=== PATIENT | female | born 1990 | race Caucasian/White ===

== ENCOUNTER 2021-07-29 19:07 | Emergency (ER) | payer OTHER, SELFPAY ==
[2021-07-29 19:26] VITALS: BP 126/69; PULSE 81; RESP 16; TEMP 36.5; O2SAT 100; BMI 23.5
--- NOTE | 2021-07-29 20:14 | PC.NURSE ---
Pt arrives from home with 3 children. Pt reporting a migraine x 3 weeks, states was prescribed Amitriptyline and Naproxen but scared to take either due to side effects. Pt reports taking Tylenol with no relief. Pt denies having a Neurologist. 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 Pt awaiting primary MD william.
--- NOTE | 2021-07-29 20:18 | PC.NURSE ---
PA at bedside for primary eval.
--- NOTE | 2021-07-29 20:31 | ED_ITS ---
HPI - Headache General Chief Complaint: Headache Stated Complaint: Migraine Time Seen by Provider: 07/29/21 20:17 Source: patient Mode of arrival: ambulatory Limitations: no limitations History of Present Illness HPI Narrative: 30 y/o female with a gradual onset headache that started 3 weeks ago and has been constant for the last 3 weeks. Patient has a migraine history and states this headache is like her regular migraines, is just lasting longer. Patient has pain in her bilateral scientologist and behind both her eyes. She is mildly nauseous, no photophobia. Is taking Tylenol but it did not help. PCP prescribed naproxen and a Triptan, but patient was no risk for side effects so did not take. Patient has no neck pain, no leg weakness, no gait disturbance. No fevers. Patient is in the room with her 3 children for active and running around the room, blowing up gloves as balloons. MD elicited complaint: migraine Pertinent past history: migraines Onset (ago): week(s) (3) Onset description: gradually Location: temporal Severity: moderate Quality & Timing: throbbing Exacerbating factors: none Relieving factors: rest Associated symptoms: nausea Related Data Previous Rx's Medication Instructions Recorded dexamethasone 6 mg tablet 6 mg PO DAILY 3 Days #3 tab 07/29/21 ketorolac 10 mg tablet 10 mg PO Q6H 5 Days #20 tab 07/29/21 Allergies Allergy/AdvReac Type Severity Reaction Status Date / Time No Known Allergies Allergy Verified 07/29/21 19:26 [No Known Allergies*] Review of Systems Constitutional: Constitutional: Denies body ache(s), Denies chills, Denies fatigue, Denies fever(s), Reports headache(s), Denies malaise and Denies weakness Eyes: Eyes: Denies diplopia ENT: Denies vertigo, Denies dizziness, Denies otalgia, Reports headache(s), Denies mouth pain, Denies post nasal drip, Denies sinus pain, Denies sinus pressure, Denies sore throat and Denies throat swelling Cardiovascular: Cardiovascular: Denies chest pain, Denies syncope, Denies leg edema, Denies lightheadedness, Denies Loss of Consciousness, Denies palpitations and Denies dyspnea Respiratory: Respiratory: Denies chest congestion, Denies cough and Denies dyspnea Gastrointestinal: Gastrointestinal: Denies abdominal pain, Denies hematochezia, Denies constipation, Denies diarrhea, Reports nausea and Denies vomiting Musculoskeletal: Musculoskeletal: Reports no additional musculoskeletal complaints Neurologic: Denies confusion, Denies vertigo, Denies dizziness, Denies syncope, Reports headache(s) and Denies weakness Psychiatric: Psychiatric: Denies anxiety, Denies confusion and Denies dep ression Endocrine: Endocrine: Denies fatigue and Denies palpitations Allergic/Immunologic: Allergic/Immunologic: Denies throat swelling [facility] Social History Social History Advance Directives: No Advance Directives Information Provided: No Physical Exam Vital Signs: Vital Signs: Last Vital Signs Temp 97.7 F 07/29/21 19:26 Pulse 81 07/29/21 19:26 Resp 16 07/29/21 19:26 BP 126/69 07/29/21 19:26 Pulse Ox 100 07/29/21 19:26 Body Mass Index 23.5 Appearance: Alert. Oriented X3. No acute distress. Head: Normal external exam. Normocephalic. Atraumatic. ?No Hernandez signs noted. No raccoon eyes noted Eyes: PERRLA. EOMI. Conjunctiva and sclera normal. Eyelids normal. ENT: EAC normal. TM's Normal. Pharynx normal. Uvula midline. Moist mucous membranes. ??No trismus noted. ?No drooling noted. ?No muffled voice noted. Neck: Normal inspection. Neck supple. FROM. No adenopathy. Thyroid Normal. No meningeal signs. No neck mass noted. CVS: Normal heart rate and rhythm. Heart sound normal. Pulses normal throughout. ?No murmurs/rales/gallops. Respiratory: No respiratory distress. Painless inspiration. Breath sounds normal. No wheezes/rales/rhonchi noted. Chest nontender. ??No accessory muscle usage noted or decreased air movement noted. Abdomen: Soft and nontender. Bowel sounds normal in all 4 quadrants. No distention noted. ?No organomegaly noted. ?No visible injury noted. Back: ?No CVA tenderness. ?Full range of motion noted. ?No rashes/lesion/induration/fluctuance or signs of infection noted. Skin: Skin warm and dry. ?Normal skin color. ?Normal skin turgor. No rashes/lesions/lacerations noted. Extremities: No lower extremity edema. ??Extremities exhibit normal range of motion. ?Extremities nontender. Neuro: Oriented X 3. No motor deficit. No sensory deficit. ?Reflexes normal. Moving all extremities. ?No focal motor deficits. ?Cranial nerves II-XI intact bilaterally. ??Facial strength normal. ??Normal cognition. Speech normal. Gait normal. Strength 5/5 throughout. No pronator drift. No tremor noted. No fasciculations noted. No rigidity noted. Muscle tone normal throughout. No asterixis noted. Elvnmr-ex-eqkp test normal. ?Heel to lombardo test normal. Tandem gait normal. Does not sway with eyes open. Romberg test negative. Rapid alternating movement upper extremity normal. Rapid alternating movement lower extremity normal. ??Hand drop from overhead Misses face. ?NIHSS score 0. Const: General: No confusion Orientation/consciousness: No confusion Neuro: General: No confusion Course Course Course Narrative: [age] year old female with 3 weeks of gradual onset headache that is like a usual migraines but lasting longer. No neck pain, no focal neuro deficits, no fevers, no meningismus. On exam, patient has a benign neurological exam, and is anxious to get home and get her children to bed. The usual treatment of migraine with IV fluids, ketorolac, Reglan, Zofran will not work in this case. Patient does not have the luxury of sleeping in a dark room with her children running around the exam room and arguing with each other. Gave patient IM ketorolac, Reglan, dexamethasone. Prescribed ketorolac and dexamethasone for home. Gave return precautions for sudden-onset headache, blurred vision, neck pain, weakness, or any other new or concerning symptoms. Discharge Plan Discharge Clinical Impression: Migraine Qualifiers: Migraine type: without aura Status migrainosus presence: without status migrainosus Intractability: not intractable Qualified Code(s): G43.009 - Migraine without aura, not intractable, without status migrainosus Patient Disposition: Home, Self-Care Instructions: Migraine Headache (ED) Additional Instructions: These for a prescription for ketorolac and dexamethasone that I have sent to your pharmacy. You have had your doses of both of these today, but I would like you to start them tomorrow. Please take Benadryl when you get home, 25-50 mg. Please try to sleep in a dark room. Please drink at least 1.5 L of water when you get home Please return to emergency room if you had sudden severe headache, neck pain, visual changes, gait disturbance, or any other new or concerning symptoms. Please call your primary care provider for follow-up appointment. Prescriptions: New ketorolac 10 mg tablet 10 mg PO Q6H 5 Days Qty: 20 RF: 0 dexamethasone 6 mg tablet 6 mg PO DAILY 3 Days Qty: 3 RF: 0 Interventions: ED Discharge Assessment Last Done: 07/29/21 20:44 Discharge Date/Time: 07/29/21 20:45
[2021-07-29] MEDS: Metoclopramide HCl 10 MG TABLET PO (20:40)
[2021-07-29] MEDS: dexAMETHasone 6 MG TABLET PO (20:40)
[2021-07-29] MEDS: Ketorolac Tromethamine 15 MG/ML VIAL IM (20:40)
--- NOTE | 2021-07-29 20:44 | PC.NURSE ---
Pt medicated per MAR, provided with DC paperwork.
== END 2021-07-29 20:45 | disposition home or self-care (01) ==
PROVIDERS: Emergency Provider Emergency Medicine Emergency Medical Services
DX: G43.009 Migraine without aura, not intractable, without status migrainosus (principal)
CPT/HCPCS: 96372; 99283; 99284; J1885; J8540

== ENCOUNTER 2021-08-04 13:39 | Emergency (ER) | payer OTHER, SELFPAY ==
--- NOTE | ~2021-08-04 | CT_ITS ---
EXAMINATION: CT HEAD WITHOUT CONTRAST CLINICAL INFORMATION: Headache COMPARISON: None TECHNIQUE: Contiguous axial imaging was performed from the skull base to vertex without intravenous administration of contrast. This CT examination was performed using dose optimization techniques as appropriate, variously including the following: *Automated exposure control *Adjustment of mA and/or kV according to patient size (this includes techniques or standardized protocols for targeted exams where dose is matched to indication/reason for exam; i.e. extremities or head) *Use of iterative reconstruction technique DLP: 589 mGy-cm FINDINGS: There is no evidence of acute intracranial hemorrhage or territorial infarction. No abnormal mass effect or midline shift is seen. [place] to white matter differentiation is well preserved. No extra-axial fluid collections are identified. The ventricles are normal in size. There is no abnormal attenuation within the brain parenchyma. The osseous structures and soft tissues are normal. The mastoid air cells and visualized portions of the paranasal sinuses are well aerated. CT/CT head/brain wo con IMPRESSION: No acute intracranial pathology.
--- NOTE | 2021-08-04 13:48 | ED.HA ---
HPI - Headache General Chief Complaint: Headache Stated Complaint: headache - meds not working Time Seen by Provider: 08/04/21 13:47 Source: patient and old records reviewed Mode of arrival: ambulatory Limitations: no limitations History of Present Illness MD elicited complaint: headache Pertinent past history: migraines Onset (ago): week(s) (4) Onset description: gradually Location: temporal Severity: severe Quality & Timing: throbbing Exacerbating factors: light and noise Relieving factors: nothing Context: occurred at rest Associated symptoms: other (feels her ears are blocked) Treatments prior to arrival: other (tried ketorolac and dexamethasone) Related Data Previous Rx's Medication Instructions Recorded dexamethasone 6 mg tablet 6 mg PO DAILY 3 Days #3 tab 07/29/21 ketorolac 10 mg tablet 10 mg PO Q6H 5 Days #20 tab 07/29/21 gimkbwfbhx-mskkoncfbldes-cjhynxfz 1 tab PO Q6H PRN #20 tab 08/04/21 50 mg-325 mg-40 mg tablet cyclobenzaprine 10 mg tablet 10 mg PO TID PRN #14 tab 08/04/21 ondansetron 4 mg disintegrating 4 mg PO Q8H PRN #20 tab 08/04/21 tablet Allergies Allergy/AdvReac Type Severity Reaction Status Date / Time No Known Allergies Allergy Verified 07/29/21 19:26 [No Known Allergies*] Review of Systems Review of Systems: Constitutional : No Fever, No Chills, No Fatigue ENT/Mouth : No sore throat, No Rhinorrhea, pos ear pain Eyes: No Eye Pain, No Swelling, No Redness Cardiovascular : No Chest Pain, No SOB, No Dyspnea on Exertion Respiratory : No Cough, No Sputum Gastrointestinal : pos Nausea, No Vomiting, No Diarrhea, No abdominal Pain Genitourinary : No Dysuria, No Urinary Frequency, No Hematuria, Musculoskeletal : No joint pain, No Myalgias, No Joint Swelling Skin : No Skin Lesions, No rash Neuro : No Weakness, No Numbness, No Dizziness, positive Headache Psych : No Anxiety/Panic, No Depression Heme/Lymph: No Bruising, No Bleeding,No Lymphadenopathy Endocrine : No Polyuria, No Polydipsia All other systems reviewed and are negative PMFSH Past Medical History Attestation statement: The following information was validated with the patient. Medical History Migraines Persistent headaches Social History Social History (Updated 08/04/21 @ 14:01 by Vicenta Bautista DO) Patient Tobacco Use Status: Tobacco use Unknown Use of substances other than those prescribed or required for medical reasons: No Advance Directives: No Advance Directives Information Provided: No Patient : No Physical Exam Vital Signs: Vital Signs: Last Vital Signs Temp 98.8 F 08/04/21 13:58 Pulse 91 08/04/21 13:58 Resp 18 08/04/21 13:58 BP 110/73 08/04/21 13:58 Pulse Ox 97 08/04/21 13:58 Body Mass Index 22.0 Appearance: Alert. Oriented X3. No acute distress. Eyes: Pupils equal, round and reactive to light. ENT: Pharynx normal. Normal TMs Neck: Normal inspection. Neck supple. no meningeal signs CVS: Normal heart rate and rhythm. Pulses normal. Respiratory: No respiratory distress. Breath sounds normal. Abdomen: Soft and non-tender. Skin: Skin warm and dry. Normal skin color. Normal skin turgor. Extremities: No lower extremity edema. No calf ttp Neuro: Oriented X 3. No motor deficit. No sensory deficit. 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 COVID swab, labs, IVF, IV pain control, CT scan for mass. Dispo per results and findings. Lab Data Result diagrams: 08/04/21 14:17 08/04/21 14:16 Labs: Lab Results 08/04/21 08/04/21 08/04/21 Range/Units 14:16 14:17 14:17 WBC 8.1 (4.8-10.8) X10*3/uL RBC 4.30 (4.20-5.50) X10*6/uL Hgb 12.6 (12.0-16.0) g/dl Hct 37.3 (37-47) % MCV 86.7 (80-98) fL MCH 29.3 (27.0-33.0) pg MCHC 33.8 (31.0-35.0) g/dl RDW 12.5 (11.0-16.0) % Plt Count 196 (160-400) X10*3/uL MPV 11.2 (9.4-12.3) fL Immature Gran % (Auto) 0.4 (0.0-0.4) % Neut % (Auto) 66.8 (45-73) % Lymph % (Auto) 24.7 (20-40) % [place] % (Auto) 5.4 (2-11) % Eos % (Auto) 2.3 (0-4) % Baso % (Auto) 0.4 (0-2) % Lymph # (Auto) 2.0 (1.2-4.9) X10*3/uL [place] # (Auto) 0.4 (0.1-1.2) X10*3/uL Eos # (Auto) 0.2 (0.0-0.4) X10*3/uL Baso # (Auto) 0.0 (0.0-0.2) X10*3/uL Abs Immat Gran (auto) 0.03 (0.00-0.03) X10*3/uL Absolute Neuts (auto) 5.4 (2.0-8.3) X10*3/uL Absolute Nucleated RBC 0.000 (0.0-0.012) X10*3/uL Nucleated RBC % (auto) 0.0 (0.0-0.2) /100WBC Sodium 137 (135-145) mmol/L Potassium 4.4 (3.3-5.1) mmol/L Chloride 103 (96-108) mmol/L Carbon Dioxide 24 (22-29) mmol/L Anion Gap 14 (12-20) BUN 16 (9-16) mg/dL Creatinine 0.74 (0.5-1.4) mg/dL Estim Creat Clear Calc 110.1 Estimated GFR > 60 Random Glucose 102 (60-115) mg/dL Calcium 9.7 (8.4-10.2) mg/dL Urine Test (NEGATIVE) COVID-19 ([facility]) Negative (Negative) COVID-19 Clin Com See Note 08/04/21 Range/Units 14:17 WBC (4.8-10.8) X10*3/uL RBC (4.20-5.50) X10*6/uL Hgb (12.0-16.0) g/dl Hct (37-47) % MCV (80-98) fL MCH (27.0-33.0) pg MCHC (31.0-35.0) g/dl RDW (11.0-16.0) % Plt Count (160-400) X10*3/uL MPV (9.4-12.3) fL Immature Gran % (Auto) (0.0-0.4) % Neut % (Auto) (45-73) % Lymph % (Auto) (20-40) % [place] % (Auto) (2-11) % Eos % (Auto) (0-4) % Baso % (Auto) (0-2) % Lymph # (Auto) (1.2-4.9) X10*3/uL [place] # (Auto) (0.1-1.2) X10*3/uL Eos # (Auto) (0.0-0.4) X10*3/uL Baso # (Auto) (0.0-0.2) X10*3/uL Abs Immat Gran (auto) (0.00-0.03) X10*3/uL Absolute Neuts (auto) (2.0-8.3) X10*3/uL Absolute Nucleated RBC (0.0-0.012) X10*3/uL Nucleated RBC % (auto) (0.0-0.2) /100WBC Sodium (135-145) mmol/L Potassium (3.3-5.1) mmol/L Chloride (96-108) mmol/L Carbon Dioxide (22-29) mmol/L Anion Gap (12-20) BUN (9-16) mg/dL Creatinine (0.5-1.4) mg/dL Estim Creat Clear Calc Estimated GFR Random Glucose (60-115) mg/dL Calcium (8.4-10.2) mg/dL Urine Test NEGATIVE (NEGATIVE) COVID-19 ([facility]) (Negative) COVID-19 Clin Com Discharge Plan Discharge Clinical Impression: Tension headache Patient Disposition: Home, Self-Care Instructions: Tension Headache (ED), Acute Headache (ED) Additional Instructions: return to ED for any worsening symptoms or concerns NEGATIVE COVID Prescriptions: New cyclobenzaprine 10 mg tablet 10 mg PO TID PRN (Reason: muscle spasm) Qty: 14 RF: 0 akufiuhvyr-tktynxsppatdn-mphl 50-325-40 mg tablet 1 tab PO Q6H PRN (Reason: pain) Qty: 20 RF: 0 ondansetron 4 mg tablet,disintegrating 4 mg PO Q8H PRN (Reason: nausea and vomiting) Qty: 20 RF: 0 No Action ketorolac 10 mg tablet 10 mg PO Q6H 5 Days Qty: 20 RF: 0 dexamethasone 6 mg tablet 6 mg PO DAILY 3 Days Qty: 3 RF: 0 Referrals: Salvador Raygoza MD [Physician] - 2 weeks Stand Alone Forms: Work/School Release
[2021-08-04 13:58] VITALS: BP 110/73; PULSE 91; RESP 18; TEMP 37.1; O2SAT 97; BMI 22.0
[2021-08-04 14:26] LABS: MANUAL DIFF FLAG NO
[2021-08-04 14:28] LABS: Basophils Percent Auto 0.4 % (0-2); Eosinophils Absolute Auto 0.2 X10*3/uL (0.0-0.4); Eosinophils Percent Auto 2.3 % (0-4); Hematocrit 37.3 % (37-47); Hemoglobin 12.6 g/dl (12.0-16.0); Imm Gran Abs Auto 0.03 X10*3/uL (0.00-0.03); Imm Gran Pct Auto 0.4 % (0.0-0.4); Lymphocytes Percent Auto 24.7 % (20-40); Mean Corpuscular HGB Conc 33.8 g/dl (31.0-35.0); Mean Corpuscular Hemoglobin 29.3 pg (27.0-33.0); Mean Corpuscular Volume 86.7 fL (80-98); Mean Platelet Volume 11.2 fL (9.4-12.3); Monocytes Absolute Auto 0.4 X10*3/uL (0.1-1.2); Monocytes Percent Auto 5.4 % (2-11); Neutrophils Absolute Auto 5.4 X10*3/uL (2.0-8.3); Neutrophils Percent Auto 66.8 % (45-73); Platelet Count 196 X10*3/uL (160-400); Red Cell Distribution Width 12.5 % (11.0-16.0); White Blood Count 8.1 X10*3/uL (4.8-10.8)
[2021-08-04 14:34] LABS: Urine Pregnancy NEGATIVE (NEGATIVE)
[2021-08-04 14:35] LABS: UPreg QC Valid YES
[2021-08-04] MEDS: Metoclopramide HCl 10 MG/2 ML VIAL IVPUSH (14:38)
[2021-08-04] MEDS: Magnesium Sulfate/H2O 2 GM/50 ML PIGGYBACK IV (14:39)
[2021-08-04] MEDS: Butalb/Acetamin/Caff 50/325/40 TABLET 1 TAB PO (14:39)
[2021-08-04] MEDS: 0.9 % Sodium Chloride 1,000 ML 999 ML IVCONT (14:39)
[2021-08-04 14:48] LABS: COVID-19 Test Negative (Negative); IDNOW Serial# 55D5AD1C
[2021-08-04 15:04] LABS: Anion Gap 14 (12-20); Blood Urea Nitrogen 16 mg/dL (9-16); Calcium 9.7 mg/dL (8.4-10.2); Carbon Dioxide 24 mmol/L (22-29); Chloride 103 mmol/L (96-108); Creatinine Clr Calc Pharmacy 110.1; Estimated Glomerular Filt Rate > 60; Glucose Random 102 mg/dL (60-115); Potassium 4.4 mmol/L (3.3-5.1); Sodium 137 mmol/L (135-145)
[2021-08-04 15:25] VITALS: BP 103/68; PULSE 68; RESP 18; TEMP 37.1; O2SAT 99
--- NOTE | 2021-08-04 15:30 | PC.NURSE ---
IVF and mag stopped pt wanted to be discharged.
== END 2021-08-04 15:31 | disposition home or self-care (01) ==
PROVIDERS: Emergency Provider Emergency Medicine
DX: G44.209 Tension-type headache, unspecified, not intractable (principal); Z20.822 Contact with and (suspected) exposure to COVID-19
CPT/HCPCS: 36415; 70450; 80048; 81025; 85025; 87635; 96365; 96366; 96375; 99284; J2765; J3475

== ENCOUNTER 2021-08-09 18:59 | Emergency (ER) | payer OTHER, SELFPAY ==
[2021-08-09 20:26] VITALS: BP 135/82; PULSE 91; RESP 18; TEMP 36.7; O2SAT 98; BMI 25.0
--- NOTE | 2021-08-09 21:50 | ED.HA ---
HPI - Headache General Chief Complaint: Headache Stated Complaint: Migraine Time Seen by Provider: 08/09/21 21:50 Source: patient Mode of arrival: ambulatory Limitations: no limitations History of Present Illness HPI Narrative: Patient history of migraine headaches been having headache for last 1 month almost daily been here 2 times in last 1 week complaint headache mostly in the frontal area with photosensitivity and nausea took 2 Fioricet without much relief Related Data Previous Rx's Medication Instructions Recorded dexamethasone 6 mg tablet 6 mg PO DAILY 3 Days #3 tab 07/29/21 ketorolac 10 mg tablet 10 mg PO Q6H 5 Days #20 tab 07/29/21 pyvrdyvbsi-tylphrpaukhqh-ixwyquqh 1 tab PO Q6H PRN #20 tab 08/04/21 50 mg-325 mg-40 mg tablet cyclobenzaprine 10 mg tablet 10 mg PO TID PRN #14 tab 08/04/21 ondansetron 4 mg disintegrating 4 mg PO Q8H PRN #20 tab 08/04/21 tablet lorazepam 1 mg tablet (Ativan) 1 mg PO BEDTIME PRN #10 tab 08/09/21 Allergies Allergy/AdvReac Type Severity Reaction Status Date / Time No Known Allergies Allergy Verified 08/09/21 20:21 [No Known Allergies*] Review of Systems Review of Systems: Yes all other systems are reviewed and are negative PMFSH Past Medical History Medical History Migraines Persistent headaches Social History Social History Patient Tobacco Use Status: Tobacco use Unknown Advance Directives: No Advance Directives Information Provided: Yes Patient : No Physical Exam Vital Signs: Vital Signs: Last Vital Signs Temp 98.1 F 08/09/21 20:26 Pulse 91 08/09/21 20:26 Resp 18 08/09/21 20:26 BP 135/82 08/09/21 20:26 Pulse Ox 98 08/09/21 20:26 Body Mass Index 25.0 Appearance: Alert. Oriented X3. In moderate Eyes: PERRLA, No Nystagmus photosensitive+ ENT: Pharynx normal. Oral Mucosa moist Neck: Normal inspection. Neck supple. CVS: Normal heart rate and rhythm. Pulses normal. Respiratory: No respiratory distress. Equal air entry bilateral, no wheezing/rales/rhonchi Abdomen: Soft and nontender. Bowel sounds are present, no mass palpable, no CVA tenderness Skin: Skin warm and dry. Normal skin color. Normal skin turgor. Extremities: No lower extremity edema. No calf tenderness Neuro: Oriented X 3. No motor deficit. No sensory deficit.No cerebellar signs , cranial nerves II-XII intact Discharge Plan Discharge Clinical Impression: Migraine Qualifiers: Migraine type: without aura Status migrainosus presence: without status migrainosus Intractability: not intractable Qualified Code(s): G43.009 - Migraine without aura, not intractable, without status migrainosus Patient Disposition: Home, Self-Care Instructions: Migraine Headache (ED) Additional Instructions: Rest at home continue medications follow-up with neurologist Seng to relax and sleep when safe Prescriptions: New lorazepam [Ativan] 1 mg tablet 1 mg PO BEDTIME PRN (Reason: sleep) Qty: 10 RF: 0 No Action ketorolac 10 mg tablet 10 mg PO Q6H 5 Days Qty: 20 RF: 0 dexamethasone 6 mg tablet 6 mg PO DAILY 3 Days Qty: 3 RF: 0 cyclobenzaprine 10 mg tablet 10 mg PO TID PRN (Reason: muscle spasm) Qty: 14 RF: 0 kaxxvyhkaq-ahvcjvyluwyax-jsxq 50-325-40 mg tablet 1 tab PO Q6H PRN (Reason: pain) Qty: 20 RF: 0 ondansetron 4 mg tablet,disintegrating 4 mg PO Q8H PRN (Reason: nausea and vomiting) Qty: 20 RF: 0
[2021-08-09 22:00] VITALS: BP 140/70; PULSE 90
[2021-08-09] MEDS: Ondansetron ODT 4 MG TAB.RAPDIS TRANSLINGU (22:03)
--- NOTE | 2021-08-09 22:08 | PC.NURSE ---
PT medicated per MAR with 10/10 migraine pain. PT is tearful and anxious at this time.
== END 2021-08-10 00:32 | disposition home or self-care (01) ==
PROVIDERS: Emergency Provider Internal Medicine
DX: G43.009 Migraine without aura, not intractable, without status migrainosus (principal); Z79.899 Other long term (current) drug therapy
CPT/HCPCS: 96372; 99284; J3030

== ENCOUNTER 2024-04-22 09:00 | Emergency (ER) | payer MEDICAID, SELFPAY ==
--- NOTE | ~2024-04-22 | CT_ITS ---
EXAMINATION: CT FACIAL BONES WITHOUT CONTRAST CLINICAL INFORMATION: Facial injury and pain COMPARISON: None available. TECHNIQUE: Multiple 3.0 and 1.5 mm axial images of the facial bones were obtained without IV contrast enhancement. Bone window and soft tissue window images were reconstructed. Coronal and sagittal images of facial bones were reconstructed from axial image data. This CT examination was performed using dose optimization techniques as appropriate, variously including the following: *Automated exposure control *Adjustment of mA and/or kV according to patient size (this includes techniques or standardized protocols for targeted exams where dose is matched to indication/reason for exam; i.e. extremities or head) *Use of iterative reconstruction technique DLP: 306 mGy-cm FINDINGS: The visualized facial bones including bilateral zygomatic arches, bony orbits, pterygoid plates, mandibular rami and body of mandible are intact. Nasal bones are intact. Nasal septum shows mild bowing to the left by 0.2 cm. There is retention of root of the left lower jaw second incisor (#23) in the alveolus. Evaluation of the upper jaw is limited by metallic artifacts. Bilateral sphenoid sinuses, ethmoid sinuses, maxillary sinuses and frontal sinuses are clear. CT/CT facial bones wo IV con IMPRESSION: 1. No acute facial bone fractures. 2. Retention of root of the left lower jaw second incisor (#23) in the alveolus.
--- NOTE | ~2024-04-22 | CT_ITS ---
EXAMINATION: CT CERVICAL SPINE WITHOUT CONTRAST CLINICAL INFORMATION: Neck injury and pain COMPARISON: None available. TECHNIQUE: Multiple 3.0 and 0.6 mm axial images were obtained from base of skull to T1 levels without IV contrast enhancement. Sagittal and coronal 2.0 mm bone window images were reconstructed from axial image data. This CT examination was performed using dose optimization techniques as appropriate, variously including the following: *Automated exposure control *Adjustment of mA and/or kV according to patient size (this includes techniques or standardized protocols for targeted exams where dose is matched to indication/reason for exam; i.e. extremities or head) *Use of iterative reconstruction technique DLP: 279 mGy-cm FINDINGS: C1/C2: Bony structures are intact with normal alignment. There is no spinal stenosis. C2/C3: Bony structures are intact with normal alignment. There is no spinal stenosis. Bilateral C2/C3 neuroforamina are patent. Bilateral apophyseal joints are intact with normal alignment. C3/C4: Bony structures are intact with mild kyphosis. There is no spinal stenosis. Bilateral C3/C4 neuroforamina are patent. Bilateral apophyseal joints are intact with normal alignment. C4/C5: Bony structures are intact with normal alignment. There is no spinal stenosis. Bilateral C4/C5 neuroforamina are patent. Bilateral apophyseal joints are intact with normal alignment. C5/C6: Bony structures are intact with normal alignment. There is no spinal stenosis. Bilateral C5/C6 neuroforamina are patent. Bilateral apophyseal joints are intact with normal alignment. C6/C7: Bony structures are intact with normal alignment. There is no spinal stenosis. Bilateral C6/C7 neuroforamina are patent. Bilateral apophyseal joints are intact with normal alignment. C7/T1: Bony structures are intact with normal alignment. There is no spinal stenosis. Bilateral C7/T1 neuroforamina are patent. Bilateral apophyseal joints are intact with normal alignment. CT/CT cervical spine wo IV con IMPRESSION: 1. No evidence of acute fracture or dislocation. 2. Mild kyphosis at C3/C4 could be due to positioning or muscle spasm.
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
[2024-04-22 09:11] VITALS: BP 123/74; PULSE 81; RESP 16; TEMP 37; O2SAT 99; BMI 24.1
[2024-04-22] MEDS: Ibuprofen 800 MG TABLET PO (09:20)
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
[2024-04-22] MEDS: Ondansetron ODT 4 MG TAB.RAPDIS TRANSLINGU (09:21)
== END 2024-04-22 11:12 | disposition home or self-care (01) ==
PROVIDERS: Emergency Provider Emergency Medicine
DX: S05.01XA Injury of conjunctiva and corneal abrasion without foreign body, right eye, initial encounter (principal); Y04.8XXA Assault by other bodily force, initial encounter; Y93.9 Activity, unspecified; Y92.9 Unspecified place or not applicable; Y99.9 Unspecified external cause status; H57.11 Ocular pain, right eye; R51.9 Headache, unspecified; R11.0 Nausea; M54.2 Cervicalgia
CPT/HCPCS: 70450; 70486; 72125; 99282; 99284

== ENCOUNTER 2024-12-11 01:49 | Emergency (ER) | payer MEDICAID, SELFPAY ==
--- NOTE | ~2024-12-11 | CT_ITS ---
CLINICAL HISTORY: r flank pain ?stone CT abdomen and pelvis without IV contrast. Comparison: None Findings: Mild right hydroureteronephrosis with 3 mm stone within the right ureterovesicular junction. No additional stones evident on the right. Mildly edematous right kidney. Lobulated versus 2 adjacent nonobstructing stones lower pole left kidney at 5 mm in total. Normal noncontrast renal contour. Lung bases clear. Heart size normal. No pleural or pericardial effusion. Cholecystectomy. No disproportionate biliary dilatation. Liver, pancreas, spleen and adrenals intact for unenhanced exam. No bowel obstruction or acute perienteric inflammation. Feculent material within multiple small bowel loops suggesting stasis. Large stool burden. Prominent although otherwise normal-appearing appendix. Normal caliber abdominal aorta. No enlarged mesenteric or retroperitoneal lymph nodes. Right ureterovesicular junction stone. Moderately distended urinary bladder without focal abnormality or wall thickening. Pelvic viscera intact. No free pelvic fluid. No acute or aggressive appearing bone lesion. Soft tissues intact. Impression: Mild right hydronephrosis with 3 mm right ureterovesicular junction stone. Nonobstructing lower pole stone left kidney. No other acute findings. Ktmaqibd-ds-tvaxs stool burden and additional features of small bowel stasis. Can be seen in constipation/chronic motility disorder. This document has been electronically signed by: Marino Pond MD on 12/11/2024 05:42:11
[2024-12-11 01:51] VITALS: BP 129/78; PULSE 86; RESP 20; TEMP 36.5; O2SAT 100; BMI 24.3
[2024-12-11 02:36] LABS: MANUAL DIFF FLAG NO
[2024-12-11 02:38] LABS: Basophils Percent Auto 0.6 % (0-2); Eosinophils Absolute Auto 0.2 X10*3/uL (0.0-0.4); Eosinophils Percent Auto 3.4 % (0-4); Hematocrit 33.4 % (37.0-47.0); Hemoglobin 11.5 g/dl (12.0-16.0); Imm Gran Abs Auto 0.01 X10*3/uL (0.00-0.03); Imm Gran Pct Auto 0.2 % (0.0-0.4); Lymphocytes Absolute Auto 1.4 X10*3/uL (1.2-4.9); Lymphocytes Percent Auto 25.8 % (20-40); Mean Corpuscular HGB Conc 34.4 g/dl (31.0-35.0); Mean Corpuscular Hemoglobin 29.3 pg (27.0-33.0); Mean Platelet Volume 10.8 fL (9.4-12.3); Monocytes Absolute Auto 0.3 X10*3/uL (0.1-1.2); Monocytes Percent Auto 5.8 % (2-11); Neutrophils Absolute Auto 3.4 x10*3/uL (2.0-8.3); Neutrophils Percent Auto 64.2 % (45-73); Platelet Count 158 X10*3/uL (160-400); Red Blood Count 3.93 X10*6/uL (4.20-5.50); Red Cell Distribution Width 12.4 % (11.0-16.0); White Blood Count 5.3 X10*3/uL (4.8-10.8)
[2024-12-11 03:10] VITALS: BP 120/68; PULSE 84; RESP 20; TEMP 36.9; O2SAT 100
[2024-12-11 03:11] LABS: Alkaline Phosphatase 64 U/L (39-117)
[2024-12-11 03:12] LABS: Alanine Aminotransferase 19 U/L (0-31); Albumin Level 4.1 g/dL (3.5-5.0); Anion Gap 10 (12-20); Aspartate Amino Transferase 26 U/L (5-31); Bilirubin Total 0.5 mg/dL (0.0-1.0); Blood Urea Nitrogen 12 mg/dL (9-16); Calcium 8.8 mg/dL (8.4-10.2); Carbon Dioxide 26 mmol/L (22-29); Chloride 109 mmol/L (96-108); Creatinine Clr Calc Pharmacy 101.7; Estimated Glomerular Filt Rate > 60; Glucose Random 126 mg/dL (60-115); HCG Quantitative < 2 mIU/mL; Lipase 9 U/L (8-78); Potassium 3.9 mmol/L (3.3-5.1); Sodium 141 mmol/L (135-145); Total Protein 6.8 g/dL (6.5-8.0)
[2024-12-11 03:24] LABS: Glucose Urine UA Negative (Negative); Leukocyte Esterase Urine Trace (Negative); Nitrite Urine Negative (Negative); Specific Gravity - Urine 1.015 (1.005-1.025); UMIC TRIGGER UACC YES; Urine Blood Large (3+) (Negative); Urine Ketones Negative (Negative); Urine Protein 30 (1+) mg/dL (Neg-Trace)
[2024-12-11 03:25] LABS: Appearance Urine Hazy; Color Urine Red
[2024-12-11 03:26] LABS: Bacteria Urine None Seen (None Seen); Hyaline Casts Urine 0-2 /LPF (0-2); RBC Urine >20 /HPF (0-2); Squamous Epithelial Cell Urine 0-2 /HPF (0-2); WBC Urine 0-5 /HPF (0-5)
--- NOTE | 2024-12-11 03:54 | ED.FEMALEGU ---
HPI - Female Genitourinary General Chief complaint: Urogenital-Female Stated complaint: UTI? 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 radiating to the right lower abdomen had some chills no fever no hematuria no dysuria no family history of kidney stone patient never had similar pain in the past Related Data Previous Rx's ?Medication ?Instructions ?Recorded dexamethasone 6 mg tablet 6 mg PO DAILY 3 days #3 tabs 07/29/21 ketorolac 10 mg tablet 10 mg PO Q6H 5 days #20 tabs 07/29/21 uymhxisxjk-zjcmlwritnwad-aeoukhip 1 tab PO Q6H PRN pain #20 tabs 08/04/21 50 mg-325 mg-40 mg tablet cyclobenzaprine 10 mg tablet 10 mg PO TID PRN muscle spasm #14 08/04/21 tabs ondansetron 4 mg disintegrating 4 mg PO Q8H PRN nausea and 08/04/21 tablet vomiting #20 tabs lorazepam 1 mg tablet (Ativan) 1 mg PO BEDTIME PRN sleep #10 tabs 08/09/21 erythromycin 5 mg/gram (0.5 %) eye 0.5 inch ophthalmic (eye) Q4H #3.5 04/22/24 ointment grams ketorolac 10 mg tablet 10 mg PO Q8H PRN pain #10 tabs 12/11/24 tamsulosin 0.4 mg capsule (Flomax) 0.4 mg PO BEDTIME #7 caps 12/11/24 Allergies Allergy/AdvReac Type Severity Reaction Status Date / Time No Known Allergies Allergy Verified 12/11/24 01:53 [No Known Allergies*] Review of Systems Review of Systems: Yes all other systems are reviewed and are negative PMFSH Past Medical History Medical History Persistent headaches Migraines Social History Social History Patient Tobacco Use Status: Tobacco use Unknown Physical Exam Vital Signs: Vital Signs: Last Vital Signs Temp 97.9 F 12/11/24 06:43 Pulse 77 12/11/24 06:43 Resp 16 12/11/24 06:43 BP 100/52 L 12/11/24 06:43 Pulse Ox 99 12/11/24 06:43 O2 Del Method Room Air 12/11/24 06:43 BMI result Body Mass Index 24.3 Appearance: Alert. Oriented X3. No acute distress. Eyes: PERRLA, No Nystagmus ENT: Pharynx normal. Oral Mucosa moist Neck: Normal inspection. Neck supple. CVS: Normal heart rate and rhythm. Pulses normal. Respiratory: No respiratory distress. Equal air entry bilateral, no wheezing/rales/rhonchi Abdomen: Soft and nontender. Bowel sounds are present, no mass palpable, R CVA tenderness Skin: Skin warm and dry. Normal skin color. Normal skin turgor. Extremities: No lower extremity edema. No calf tenderness Neuro: Oriented X 3. No motor deficit. No sensory deficit.No cerebellar signs , cranial nerves II-XII intact Medications Administered Discontinued Medications Generic Name Dose Route Start Last Admin Trade Name Freq PRN Reason Stop Dose Admin Sodium Chloride 1,000 mls @ 999 mls/hr 12/11/24 03:58 12/11/24 06:44 Ns IV 12/11/24 04:58 Infused .Q1H1M ONE Infusion Ketorolac Tromethamine 30 mg 12/11/24 03:58 12/11/24 04:58 Ketorolac Tromethamine 30 Mg/Ml Vial IVPUSH 12/11/24 03:59 30 mg ONCE ONE Administration Morphine Sulfate 4 mg 12/11/24 03:58 12/11/24 04:58 Morphine Sulfate 4 Mg/Ml Cartridge IVPUSH 12/11/24 03:59 4 mg ONCE ONE Administration Protocol Morphine Sulfate 4 mg 12/11/24 06:00 12/11/24 06:07 Morphine Sulfate 4 Mg/Ml Cartridge IVPUSH 12/11/24 06:01 4 mg ONCE ONE Administration Protocol Ondansetron HCl 4 mg 12/11/24 03:58 12/11/24 04:58 Ondansetron Hcl 4 Mg/2 Ml Vial IVPUSH 12/11/24 03:59 4 mg ONCE ONE Administration Tamsulosin HCl 0.4 mg 12/11/24 05:57 12/11/24 06:07 Tamsulosin Hcl 0.4 Mg Capsule PO 12/11/24 05:58 0.4 mg ONCE ONE Administration Medical Decision Making Medical Decision Making [facility] Narrative: Patient with right UVJ 3 mm stone with mild hydro responded to IV fluids and pain medication patient is feeling much better at this time will discharge patient home advised to follow up with urologist Differential Diagnosis Differential Diagnoses: The differential diagnosis associated with the presentation includes Lab Data [facility] Lab Attestation statement: I reviewed the patient's lab results. 12/11/24 02:27 12/11/24 02:27 Labs: Lab Results 12/11/24 12/11/24 Range/Units 02:27 03:10 WBC 5.3 (4.8-10.8) X10*3/uL RBC 3.93 L (4.20-5.50) X10*6/uL Hgb 11.5 L (12.0-16.0) g/dl Hct 33.4 L (37.0-47.0) % MCV 85.0 (80.0-98.0) fL MCH 29.3 (27.0-33.0) pg MCHC 34.4 (31.0-35.0) g/dl RDW 12.4 (11.0-16.0) % Plt Count 158 L (160-400) X10*3/uL MPV 10.8 (9.4-12.3) fL Immature Gran % (Auto) 0.2 (0.0-0.4) % Neut % (Auto) 64.2 (45-73) % Lymph % (Auto) 25.8 (20-40) % Kimble % (Auto) 5.8 (2-11) % Eos % (Auto) 3.4 (0-4) % Baso % (Auto) 0.6 (0-2) % Lymph # (Auto) 1.4 (1.2-4.9) X10*3/uL Kimble # (Auto) 0.3 (0.1-1.2) X10*3/uL Eos # (Auto) 0.2 (0.0-0.4) X10*3/uL Baso # (Auto) 0.0 (0.0-0.2) X10*3/uL Abs Immat Gran (auto) 0.01 (0.00-0.03) X10*3/uL Absolute Neuts (auto) 3.4 (2.0-8.3) x10*3/uL Absolute Nucleated RBC 0.000 (0.0-0.012) X10*3/uL Nucleated RBC % (auto) 0.0 (0.0-0.2) /100WBC Sodium 141 (135-145) mmol/L Potassium 3.9 (3.3-5.1) mmol/L Chloride 109 H (96-108) mmol/L Carbon Dioxide 26 (22-29) mmol/L Anion Gap 10 L (12-20) BUN 12 (9-16) mg/dL Creatinine 0.75 (0.5-1.4) mg/dL Estim Creat Clear Calc 101.7 Estimated GFR > 60 Random Glucose 126 H (60-115) mg/dL Calcium 8.8 D (8.4-10.2) mg/dL Total Bilirubin 0.5 (0.0-1.0) mg/dL AST 26 (5-31) U/L ALT 19 (0-31) U/L Alkaline Phosphatase 64 (39-117) U/L Total Protein 6.8 (6.5-8.0) g/dL Albumin 4.1 (3.5-5.0) g/dL Lipase 9 (8-78) U/L Beta HCG, Quant < 2 mIU/mL Urine Color Red A Urine Appearance Hazy Urine pH 6.0 (5.0-9.0) Ur Specific [place] 1.015 (1.005-1.025) Urine Protein 30 (1+) H (Neg-Trace) mg/dL Urine Glucose (UA) Negative (Negative) mg/dL Urine Ketones Negative (Negative) mg/dL Urine Blood Large (3+) H (Negative) Urine Nitrite Negative (Negative) Ur Leukocyte Esterase Trace H (Negative) Urine RBC >20 H (0-2) /HPF Urine WBC 0-5 (0-5) /HPF Ur Squamous Epith Cells 0-2 (0-2) /HPF Urine Bacteria None Seen (None Seen) Hyaline Casts 0-2 (0-2) /LPF Urine Test Cancelled Independent Interpretation I performed an independent interpretation of an: CT Scan Radiology Impression Discussion of test interpretation with radiology: I have reviewed the radiologist's reading. Radiologist Impression: [address] [address] [address] Scan Report Signed Patient: Marivel Saxena MR#: [id number] : 1990 Acct:[id number] Age/Sex: 33 / F ADM Date: 12/11/24 Loc: HO.ED Attending Dr: Ordering Physician: Jean-aPul Vo MD Date of Service: 12/11/24 Procedure(s): CT abdomen pelvis wo IV con Accession Number(s): [id number] cc: Physician,Unknown ; Jean-Paul Vo MD~ Report Number: [id number]: Total DLP = 444.00 mGy-cm CLINICAL HISTORY: r flank pain ?stone CT abdomen and pelvis without IV contrast. Comparison: None Findings: Mild right hydroureteronephrosis with 3 mm stone within the right ureterovesicular junction. No additional stones evident on the right. Mildly edematous right kidney. Lobulated versus 2 adjacent nonobstructing stones lower pole left kidney at 5 mm in total. Normal noncontrast renal contour. Lung bases clear. Heart size normal. No pleural or pericardial effusion. Cholecystectomy. No disproportionate biliary dilatation. Liver, pancreas, spleen and adrenals intact for unenhanced exam. No bowel obstruction or acute perienteric inflammation. Feculent material within multiple small bowel loops suggesting stasis. Large stool burden. Prominent although otherwise normal-appearing appendix. Normal caliber abdominal aorta. No enlarged mesenteric or retroperitoneal lymph nodes. Right ureterovesicular junction stone. Moderately distended urinary bladder without focal abnormality or wall thickening. Pelvic viscera intact. No free pelvic fluid. No acute or aggressive appearing bone lesion. Soft tissues intact. Impression: Mild right hydronephrosis with 3 mm right ureterovesicular junction stone. Nonobstructing lower pole stone left kidney. No other acute findings. Eqdqsrjz-he-orlph stool burden and additional features of small bowel stasis. Can be seen in constipation/chronic motility disorder. This document has been electronically signed by: Marino Pond MD on 12/11/2024 05:42:11 Discharge Plan Discharge Clinical Impression: Kidney stone on right side Patient Disposition: Home, Self-Care Instructions: Kidney Stones (ED), Low Oxalate Diet (ED) Additional Instructions: You have 3 mm stone in the right ureter which is likely going to pass Pain medication as prescribed Flomax daily till you pass the stone Follow up with urologist Report to the ER if pain gets worse Decrease the food containing oxalate Prescriptions: New tamsulosin [Flomax] 0.4 mg capsule 0.4 mg PO BEDTIME Qty: 7 0RF ketorolac 10 mg tablet 10 mg PO Q8H PRN (Reason: pain) Qty: 10 0RF Rx Instructions: maximum total duration of 5 days from all oral, intranasal, or parenteral formulations No Action ketorolac 10 mg tablet 10 mg PO Q6H 5 Days Qty: 20 0RF dexamethasone 6 mg tablet 6 mg PO DAILY 3 Days Qty: 3 0RF lorazepam [Ativan] 1 mg tablet 1 mg PO BEDTIME PRN (Reason: sleep) Qty: 10 0RF cyclobenzaprine 10 mg tablet 10 mg PO TID PRN (Reason: muscle spasm) Qty: 14 0RF hbzhxwzilc-cdtowgwktesxm-bmyw 50-325-40 mg tablet 1 tab PO Q6H PRN (Reason: pain) Qty: 20 0RF ondansetron 4 mg tablet,disintegrating 4 mg PO Q8H PRN (Reason: nausea and vomiting) Qty: 20 0RF erythromycin 5 mg/gram (0.5 %) ointment 0.5 inch ophthalmic (eye) Q4H Qty: 3.5 0RF Referrals: Marcelo Piper MD [Physician] - 1 week Interventions: ED Discharge Assessment Last Done: 12/11/24 06:43 Discharge Date/Time: 12/11/24 07:10 Print Language: Occitan
[2024-12-11] MEDS: 0.9 % Sodium Chloride 1,000 ML 999 ML IV (04:55)
[2024-12-11] MEDS: ondansetron HCL 4 MG/2 ML VIAL IVPUSH (04:58)
[2024-12-11] MEDS: Morphine Sulfate 4 MG/ML CARTRIDGE IVPUSH ×2 (04:58→06:07)
[2024-12-11] MEDS: Ketorolac Tromethamine 30 MG/ML VIAL IVPUSH (04:58)
[2024-12-11 06:03] VITALS: BP 100/52; PULSE 77; RESP 16; O2SAT 99
[2024-12-11] MEDS: Tamsulosin HCL 0.4 MG CAPSULE PO (06:07)
[2024-12-11 06:43] VITALS: BP 100/52; PULSE 77; RESP 16; TEMP 36.6; O2SAT 99
== END 2024-12-11 07:10 | disposition home or self-care (01) ==
PROVIDERS: Emergency Provider Internal Medicine
DX: N20.0 Calculus of kidney (principal); R10.2 Pelvic and perineal pain; R10.31 Right lower quadrant pain; Z79.899 Other long term (current) drug therapy
CPT/HCPCS: 36415; 74176; 80053; 81001; 83690; 84702; 85025; 99284; J1885; J2270; J2405

== ENCOUNTER → 2024-12-11 03:55 | Outpatient (BNV) | payer MEDICAID, SELFPAY | PROVIDERS: Emergency Provider Internal Medicine; Visit Provider Radiology Diagnostic Radiology | DX: N20.0 Calculus of kidney (principal); N13.39 Other hydronephrosis | CPT/HCPCS: 74176 ==

== ENCOUNTER 2025-01-22 11:40 | Outpatient (AMB) | payer MEDICAID, SELFPAY ==
--- NOTE | 2025-01-22 11:45 | MHC.OFFVIS ---
Intake Visit Reasons: Kidney stones Intake Note: Pt presents to the office today as a new pt for kidney stones Allergies No Known Allergies [No Known Allergies*] Allergy (Verified 02/05/25 09:18) HPI Comments Details: Marivel is a pleasant female. She is a patient of . She is seen for the following urologic conditions - nephrolithiasis Currently with minimal symptoms Six-month follow-up repeat imaging Nephrolithiasis Seen in ER 12/21/2024 Imaging - CT Mild right hydroureteronephrosis with 3 mm stone within the right ureterovesicular junction. No additional stones evident on the right PFSH Medical History Persistent headaches Migraines Social History Patient Tobacco Use Status: Tobacco use Unknown Advance Directives: No Advance Directives Information Provided: No Do you have a plan to hurt others: No Plan Review of Systems Const Denies chills and Denies fever(s) Card Reports no additional complaints and Denies syncope Resp Denies cough GI Denies abdominal pain and Denies heartburn Reports as per HPI and Denies change in libido Neuro Denies syncope Psych Denies change in libido Endo Denies change in libido Physical Exam Const General: cooperative, healthy appearing, comfortable and no acute distress Orientation/consciousness: patient oriented x3 HEENT Face and sinus: Yes normal facial exam Mouth: moist mucous membranes Neck Neck: Yes normal visual inspection, Yes full ROM and Yes trachea midline Chest Chest palpation & inspection: normal inspection of the chest Resp Effort & Inspection: normal respiratory effort, able to speak in complete sentences and no respiratory distress GI Inspection: Yes normal to inspection Back/Spine/Pelvis Cervical Spine: normal cervical lordosis Thoracic/Lumbar Spine: thoracic and lumbar spine normal to inspection Skin General skin exam: no rashes or lesions noted Neuro General: patient oriented x3, gait normal, tone normal and moves all extremities Extrem General: Yes normal to inspection and Yes capillary refill normal Assessment & Plan Assessment & Plan (1) Nephrolithiasis: Code(s): N20.0 - Calculus of kidney Category: Medical Plan Encourage fluids Interval imaging Orders: Orders US renal BI 6 Months N20.0 - Calculus of kidney Medications: Discontinued dexamethasone Discontinued Reason: Patient no longer taking 6 mg PO DAILY 3 days 3 tabs 0RF umsanybilt-pddazbfftfeex-zpmj 50-325-40 mg Discontinued Reason: Patient no longer taking 1 tab PO Q6H PRN 20 tabs 0RF pain cyclobenzaprine Discontinued Reason: Patient no longer taking 10 mg PO TID PRN 14 tabs 0RF muscle spasm ketorolac Discontinued Reason: Patient no longer taking 10 mg PO Q6H 5 days 20 tabs 0RF ondansetron Discontinued Reason: Patient no longer taking 4 mg PO Q8H PRN 20 tabs 0RF nausea and vomiting lorazepam Discontinued Reason: Patient no longer taking 1 mg PO BEDTIME PRN 10 tabs 0RF sleep erythromycin Discontinued Reason: Patient no longer taking 0.5 inches ophthalmic (eye) Q4H 3.5 grams 0RF tamsulosin Discontinued Reason: Patient no longer taking 0.4 mg PO BEDTIME 7 caps 0RF ketorolac maximum total duration of 5 days from all oral, intranasal, or parenteral formulations Discontinued Reason: Patient no longer taking 10 mg PO Q8H PRN 10 tabs 0RF pain Patient Instructions: This note is constructed using voice recognition software. While every effort has been made to ensure accuracy risk management manager errors may have been included. Imaging studies, laboratory and physical exam results were discussed and reviewed in detail. No major barriers to patient understanding were identified. An opportunity to ask questions regarding the treatment plan was provided. All questions were answered. The patient expressed understanding and agreement with the above treatment plan. The patient is aware they should contact our office by phone for worsening of their current condition or the appearance of new urologic symptoms. Compliance is encouraged with any medications and followup testing that is ordered. It is a privilege to participate in the urologic care of your patient. If you have any questions or concerns regarding treatment for the above conditions, or other urologic issues, please do not hesitate to contact me. The office telephone contact is [phone]. Sincerely, Dr Marcelo Piper MD, [facility] - Urology Compassionate Specialist Care for the Genitourinary System Coding Level of Care Code New Pt Level 3 (92985) Diagnoses Nephrolithiasis N20.0
--- OUTSIDE RECORDS SUMMARY | 2025-01-22 12:43 | XMS_ITS | Clinical Summary ---
Author Organization [facility] Address [address] [place] [address] Care Team Providers Care Pull Through Hooker Name Role Phone Tigre Marshall POACHER WRINGER OPERATOR-C Primary Care Provider [phone] Source Comments PLEASE NOTE, if this patient is a minor, it may be UNLAWFUL to discuss sensitive information that is contained in these records (such as FAMILY PLANNING, MENTAL HEALTH or SUBSTANCE ABUSE) with the minor patient's parent or other person without the patient's specific authorization.[facility] Allergies No known active allergies Medications SUBOXONE 12-3 mg SL film TAKE 1 FILM SUBLINGUALLY EVERY DAY 07/03/20 22 Active fluticasone (FLONASE) 50 mcg/actuation nasal sprayIndications: Oral lesion Place 1 Mastic in both nostrils once daily 16 g 2 01/02/20 23 Active magnesium oxide (MAG-OX) 400 mg (241.3 mg magnesium) tabletIndications :Migraine without status migrainosus, not intractable, unspecified migraine type,Takes daily multivitamins Take 1 Tablet by mouth once daily 30 Tablet 2 12/19/19 24 Active valACYclovir (VALTREX) 1 gram tabletIndications :HSV-2 (herpes simplex virus 2) infection Take 1 Tablet by mouth once daily B00.9 10 Tablet 12/19/19 24 Active coenzyme Q10 10 mg capsuleIndication s:Migraine without status migrainosus, not intractable, unspecified migraine type,Takes daily multivitamins Take 1 Capsule by mouth once daily 30 Capsule 2 12/19/19 24 Active cyclobenzaprine (FLEXERIL) 10 mg tabletIndications :Bilateral leg pain Take 1 Tablet by mouth 2 (two) times daily as needed for muscle spasms 60 Tablet 2 02/14/20 24 Active ferrous sulfate 325 mg (65 mg iron) tabletIndications :Iron deficiency Take 1 Tablet by mouth once daily with breakfast 90 Tablet 3 02/21/20 24 Active Active Problems Problem Noted Date Diagnosed Date Migraine without status migrainosus, not intract able 07/31/2022 History of hepatitis C 07/31/2022 HSV-2 (herpes simplex virus 2) infection 018 Opioid dependence in remission ([facility]) 016 Resolved Problems Problem Noted Date Diagnosed Date Resolved Date Acute hepatitis C virus infection 05/29/2017 07/31/2022 Overview (05/29/2017): Followed by [facility] Substance abuse ([facility]) 07/30/2016 Overview (07/30/2016): Pt came to see a PCP and LADC schedule apts where set and there has been no show for her apts and Calls. Tobacco abuse disorder 07/12/201607/31 Family History Relation Name Status Comments Father Alive Mother Alive Social History Tobacco Use Types Packs/Day Years Used Date Smoking Tobacco: Former Cigarettes Smokeless Tobacco: Former Tobacco Cessation:Counseling Given: Yes Alcohol Use Standard Drinks/Week Comments No 0 (1 standard drink = 0.6 oz pur e alcohol) Social Connections Answer Date Recorded Connectedness 0 08/08/2024 Financial Resource Strain Answer Date R ecorded Financial Resource Strain 0 2018 Stress Answer Date Recorded Stress 0 07/20/2019 Physical Activity Answer Date Recorded Physical Activity 0 07/20/2019 Food Insecurity Answer Date Recorded Food 0 08/27/2024 Transportation Needs Answer Date Record ed Transportation 0 07/20/2019 Housing Stability Answer Date Recorded Housing 0 07/20/2019 Safety and Environment Answer Date Myron rded Safety 1 12/19/2023 Utilities Answer Date Recorded Utilities 0 07/20/2019 Employment Answer Date Recorded Employment 0 07/20/2019 Comments No Sex and Gender Information Value Date Recorded Sex Assigned at Female 10/06/2017 10:59 AM PST Legal Sex Female 7:46 AM PDT Gender Identity Female 10/06/2017 10:59 AM PST Sexual Orientation Straight 10/06/2017 10 :59 AM PST Last Filed Vital Signs Vital Sign Reading Time Taken Comments Blood Pressure 104/68 12/19/2023 1:59 PM EST Pulse 76 05/23/2023 2:39 PM EDT Temperature 36.8 ??C (98.3 ??F) 12/19/2023 1:59 PM ES T Respiratory Rate 16 12/19/2023 1:59 PM EST Oxygen Saturation 97% 01/02/2023 3:38 PM EST Inhaled Oxygen Concentration - - Weight 69 kg (152 lb 3.2 oz) 12/19/2023 1:59 PM EST Height 170.2 cm (5' 7 ) 12/19/2023 1:59 PM EST Body Mass Index 23.84 12/19/2023 1:59 PM EST Plan of Treatment Upcoming Encounters Date Type Department Care Team (Late st Contact Info) Description 02/09/2025 4:00 PM EDT Office Visit [facility] [address] [place] [phone] Tigre Marshall FNP-Basia [address] [place] [id number] Health Maintenance Due Date Last Done Comments Imm-Hepatitis B (1 of 3 - 19 + 3-dose series) 2007 Pap Smear 06/12/2022 06/12/2019 Cervical Cancer Screening 06/12/2024 HPV Screening 06/12/2024 06/12/2019 Pap + HPV 06/12/2024 06/12/2019 Imm-Influenza (#1) 2024 Alcohol and Drug Screen 12/02/2024 12/19/19 24, 11/06/2022, 01/13/2019, Additional history exists Depression Annual Screen 12/02/2024 12/19/2023 Annual Preventive Care Visit 12/19/2024 12/19/2023, 07/31/2022 Relationship Safety Screening/Counseling 12/19/2024 12/19/2023, 11/06/2022 Tobacco Screening 02/09/2025 02/10/2024, 12/19/2023 Hypertension Screening (#1) 12/18/2026 Diabetes Screening 12/26/2026 12/26/2023, 0 12/26/2023, 01/08/2023, Additional history exists HIV Screening Completed 05/23/2023, 020 06/2023, 02/02/2022, Additional history exists Cervical Ablation/Cold-Knife Conization Discontinued Cervical Cryotherapy Discontinued Colposcopy Discontinued Endometrial Biopsy Discontinued Excision/Leep Discontinued HPV Genotyping Discontinued [id number] Discontinued Imm-DTaP/Tdap/Td Discontinued Vaginal Pap Discontinued Vulvoscopy Discontinued Procedures Procedure Name Priority Date/Time Associated Diagnosis Comments IMAGING SCANNED DOCUMENT 11/09/2024 3:00 AM EST HEMOGLOBIN GLYCOSYLATED A1C Routine 12/26/2023 10:52 AM EST Routine general medical examination at a health care facility HIV 1/2 AG & AB W/RFLX (4TH GEN) Routine 05/23/2023 2:54 PM EDT Possible exposure to STD PAP SMEAR W/HPV, ABSTRACTED Routine 06/12/2019 2:53 PM EDT from Last 3 Months or Most Recently Relevant to Health Maintenance Results * IMAGING SCANNED DOCUMENT (11/09/2024 3:00 AM EST) 11/09/2024 3:00 AM EST Kamila Morton MD SCAN IMAGING Final Result * HEMOGLOBIN GLYCOSYLATED A1C (12/26/2023 10:52 AM EST) HEMOGLOBIN A1C 5.1 <5.7 % of total Hgb [employer] [facility] Comment: For the purpose of screening for the presence of diabetes: <5.7% ? Consistent with the absence of diabetes 5.7-6.4% ?Consistent with increased risk for diabetes ?(prediabetes) > or =6.5% ??Consistent with diabetes This assay result is consistent with a decreased risk of diabetes. Currently, no consensus exists regarding use of hemoglobin A1c for diagnosis of diabetes in children. According to [place] Diabetes Association (ADA) guidelines, hemoglobin A1c <7.0% represents optimal control in non- diabetic patients. Different metrics may apply to specific patient populations. Standards of Medical Care in Diabetes(ADA). ?? Blood Blood / Unknown 12/26/2023 1 0:52 AM EST 12/26/2023 10:53 AM EST Narrative [employer] [facility] - 12/27/2023 5:55 AM EST FASTING:UNKNOWN Tigre Marshall POACHER WRINGER OPERATOR-C LAB - BLOOD DRAW Final Re sult Performing Organization Address [facility] de Phone Number [email or web address] [address] [address], [employer] [address] [phone] * HIV 1/2 AG & AB W/RFLX (4TH GEN) (05/23/2023 2:54 PM EDT) [facility] HIV AG/AB, 4TH GEN NON-REAC TIVE NON-REAC TIVE [email or web address] [facility] Comment: HIV-1 antigen and HIV-1/HIV-2 antibodies were not detected. There is no laboratory evidence of HIV infection. PLEASE NOTE: This information has been disclosed to you from records whose confidentiality may be protected by state law. ??If your state requires such protection, then the state law prohibits you from making any further disclosure of the information without the specific written consent of the person to whom it pertains, or as otherwise permitted by law. A general authorization for the release of medical or other information is NOT sufficient for this purpose. ?? For additional information please refer to http://education.[employer]/faq/MKM154 (This link is being provided for informational/ educational purposes only.) The performance of this assay has not been clinically validated in patients less than 2 years old. Blood Blood / Unknown 05/23/2023 2 :54 PM EDT 05/23/2023 2:55 PM EDT Elo Borja POACHER WRINGER OPERATOR-BC LAB - BLOOD DRAW Final Re sult Performing Organization Address [facility]/ZIP Co de Phone Number [email or web address] [address] [address], [employer] [facility] [address] [address] * PAP SMEAR W/HPV, ABSTRACTED (06/12/2019 2:53 PM EDT) PAP SMEAR INTERPRETATION NORMAL NORMAL [facility] HPV (HUMAN PAPILLOMA) NEGATIVE NEGATIVE [facility] HPV TYPE 16 NEGATIVE NEGATIVE [facility] HPV TYPE 18 NEGATIVE NEGATIVE [facility] Specimen from uterine cervix (specimen) 06/12/2019 2:53 PM EDT Impressions [facility] - 06/18/2019 2:52 PM EDT Per NEPA: ThinPrep Pap, Imaged: Negative for squamous intraepithelial lesion and malignancy High Risk HPV: NEGATIVE us Provider [facility] - NO BLOOD DRAW Final Result [facility] [address] [place] [address], from Last 3 Months or Most Recently Relevant to Health Maintenance Insurance [place] D[place] [facility] SAF[employer]Y [employer] [address]ENT[address] [place] [address] ACO Care Teams Pull Through Hooker Relationship Specialty Start Date End Date Tigre Marshall FNP-C [address] [place] [address] PCP - General Internal Medicine 11/14/23
--- OUTSIDE RECORDS SUMMARY | 2025-01-22 12:43 | XMS_ITS | Encounter Summary ---
Author Organization [facility] Address [address] [place] [address] Care Team Providers Care Assistant Family Teacher Name Role Phone Tigre Marshall CYBER DEFENSE INCIDENT RESPONDER-C Primary Care Provider [phone] Reason for Visit * Reason Comments Alcohol And Drug Screening Encounter Details Date Type Department Care Team (Late Contact Info) Description 07/13/2016 / Visits [address] [phone] Edyta Alberto, COUNSELOR [address] [place] [phone] Abuse, drug or alcohol (Primary Dx) Social History Tobacco Use Types Packs/Day Years Used Date Smoking Tobacco: Every Day Cigarettes Smokeless Tobacco: Never Alcohol Use Standard Drinks/Week Comments No 0 (1 standard drink = 0.6 oz pur e alcohol) Comments Yes Sex and Gender Information Value Date Recorded Sex Assigned at Female 10/06/2017 10:59 AM PST Legal Sex Female 7:46 AM PDT Gender Identity Female 10/06/2017 10:59 AM PST Sexual Orientation Straight 10/06/2017 10 :59 AM PST documented as of this encounter Progress Notes * Matty Morgan - 07/17/2016 3:44 PM EDT No show for session reschedule apts and followed up with a call. documented in this encounter Plan of Treatment Upcoming Encounters Date Type Department Care Team (Late Contact Info) Description 02/09/2025 4:00 PM EDT Office Visit [address] [phone] Tigre Marshall FNP-C [address] [place] [address] documented as of this encounter Visit Diagnoses Diagnosis Abuse, drug or alcohol ([facility])- Primary Other, mixed, or unspecified nondependent drug abuse, unspecified documented in this encounter Care Teams Assistant Family Teacher Relationship Specialty Start Date End Date Tigre Marshall FNP-C [address] [place] [phone] PCP - General Internal Medicine 11/14/23 documented as of this encounter
--- OUTSIDE RECORDS SUMMARY | 2025-01-22 12:43 | XMS_ITS | Continuity of Care Document ---
Author Organization [facility] Address [address] [place] [address] Phone Care Team Providers Care Licensed Tax Consultant Name Role Phone Miguel JEONG, RVT, DONATO, [...] Mins- [place] & [place] [facility] MD [facility], [address] [place] [address] Dr Huitron 1000SuRubén chambers [place], [id number], [place] tel:[phone] CVR - [place] Chronic venous hypertension (idiopathic) with other complications of bilateral lower extremityRestl ess legs syndromeVenous insufficiency (chronic) (peripheral)Cr amp and spasm 4 Miguel JEONG RVT, DONATO Crane. [address] [place] [address], [place], [id number] , [place]. tel:[phone] [facility] MD [facility], [address] [place] [address] Dr Huitron 1000SuRubén chambers MD, [id number], [place] tel:[phone] [facility]ose [facility] of right lower extremity with pain 4 Miguel JEONG RVT, DONATO Crane. [address] [place] [address], [place], [id number] , [place]. tel: [phone] Referring Provider: Royce Rivera MD, RVT, DONATO, [address] [place] [address], [place], [address] . tel:[phone] Office/Outpt E&M Established 15 Mins- CT & [place] [facility], [address] [place] [address] Dr H[address]ron [facility] 1000Rubén [place], [id number], [place] tel:[phone] [facility] Venous insufficiency (chronic) (peripheral) 4 Miguel JEONG RVT, RPVI Robert. [address] [place] [address], [facility] [place], [id number] , [place]. tel:[phone] [facility], [address] [place] [address] Dr Huitron 1000Suite Rubén Maldonado [place], [id number], [place] [phone] CVR - [facility] Encounter for follow-up examination after completed treatment for conditions other than malignant nePain in right leg 4 Miguel JEONG RVT, RPVI Robert. [address] [facility], [address], [place], [id number] , [place]. tel:[phone] Referring Provider: Royce Rivera MD, RVT, DONATO, [facility] [facility] [address], [place], [address] . tel:[phone] [facility], [address] [place] [address] Dr [address] 1000Rubén [place], [id number], [place] tel:[phone] CVR - [place] Encounter for follow-up examination after completed treatment for conditions other than malignant neoplasmPain in right leg 4 Miguel JEONG RVT, RPVI Robert. [address] [facility], [address], [place], [id number] , [place]. tel:[phone] Referring Provider: Royce Rivera MD, RVT, DONATO, [address] [place] [address] [address], [place], [address] . tel:[phone] [place] [facility], [address] [place] [address] Dr [address] 1000Rubén [place], [id number], [place] tel:[phone] CVR - [place] Encounter for follow-up examination after completed treatment for conditions other than malignant nePain in right leg 4 Miguel JEONG RVT, RPVI Robert. [address] [place] [address], [address], [place], [id number] , [place]. tel:[phone] Referring Provider: Royce Rivera MD, RVT, RPVI, [address] [place] [address] [address], [place], [address] . tel:[phone] [facility], [address] [place] [address] Dr [address] 1000Rubén [place], [id number], [place] tel:[phone] CVR - [place] Varicose veins of right lower extremity with other complications 4 Miguel JEONG RVT, RPVI Robert. [address] [place] [address], [address], [place], [id number] , [place]. tel:[phone] Referring Provider: Royce Rivera MD, RVT, DONATO, [address] [facility] Suite [facility], [place], [address] . tel:[phone] [facility], [address] [place] [address] Dr Huitron 1000Suite 1000Rubén [place], [id number], [place] tel:[phone] CVR - [place] Varicose veins of right lower extremity with other complications 4 Miguel JEONG RVT, RPVI Robert. [address] [facility], [place] [address], [place], [id number] , [place]. tel:[phone] [place] [facility], [address] [place] [address] Dr Huitron 1000Suite 1000Rubén [place], [id number], [place] tel:[phone] CVR - [place] Chronic venous hypertension (idiopathic) with inflammation of right lower extremity 4 Miguel JEONG RVT, RPVI Robert. [facility] [place] [address], [place], [id number] , [place]. tel:[phone] [facility], [address] [place] [address] Dr Huitron 1000Suite 1000Rubén [place], [id number], [place] tel:[phone] CV[place] - [place] No Information 4 Miguel JEONG RVT, RPVI Robert. [address] [place] [address], [place], [id number] , [place]. tel:[phone] Offic/outpt E&m Estab 5 Min Trial- Telemedicine CT & [place] [facility], [address] [place] [address] Dr Huitron 1000Suite 1000Rubén MD, [id number], [place] tel:[phone] CVR - [place] Chronic venous hypertension (idiopathic) with other complications of bilateral lower extremityRestl ess legs syndromePrurit us, unspecified 4 Poncho Wallace . [address] [facility], [facility] [address], [place], [id number] , [place]. tel:[phone] Office/Oupt E&M New Pt 45 Mins [facility] MD [facility], [address] [place] [address] Dr [address] 1000[address] 1000, [place], [id number], tel:[phone] CV[place] - [place] Varicose veins of right lower extremity with other complicationsP ain in right lower legPain in right legCramp and spasmRestless legs syndromePrurit us, unspecified 4 Miguel JEONG RVT, DONATO Crane. [address] [place] [address], [facility] [place], [id number] , . tel:[phone] [facility], [address] [place] [address] Dr Huitron 1000Suite 1000Rubén [place], [id number], tel:[phone] CV[facility] - [place] Chronic venous hypertension (idiopathic) with other complications of right lower extremity 4 Miguel JEONG RVT, DONATO Crane. [address] [place] [address], [facility] [place], [id number] , . tel:[phone] Referring Provider: Royce Rivera MD, TIA, DONATO, [address] [place] [address], [facility] [place], [address] . tel:[phone] Family History Family Member Type Diagnosis Age At Onset No Information Payers Payer name Insurance type Covered alliance party ID Authoriza tion(s) Medical Assistance [facility] [id number] Social History Type Description Quantity Date Captured [...] Information Instructions Date Instruction Additional Infor mation Diet education Related to Body mass index (BMI) 23.0-23.9, adult Giving Encouragement to exercise Related to Body mass index (BMI) 23.0-23.9, adult Lifestyle education Related to B [place] mass index (BMI) 23.0-23.9, adult Pre and post instruc tions reviewed and provided Related to Chronic venous hypertension (idiopathic) with other complications of bilateral lower extremity Compression stocking usage as conservative measure Related to Chronic venous hypertension (idiopathic) with other complications of bilateral lower extremity Giving Encouragement to exercise Related to Body mass index (BMI) 23.0-23.9, adult Lifestyle education Related to B [place] mass index (BMI) 23.0-23.9, adult Patient education booklet given Related to Venous insufficiency (chronic) (peripheral) Pre and post instruc tions reviewed and provided Related to Venous insufficiency (chronic) (peripheral) Diet education Related to Body mass index (BMI) 23.0-23.9, adult Patient education booklet given Related to Chronic venous hypertension (idiopathic) with other complications of bilateral lower extremity Pre and post instruc tions reviewed and provided Related to Chronic venous hypertension (idiopathic) with other complications of bilateral lower extremity Diet education Related to Body mass index (BMI) 23.0-23.9, adult Giving Encouragement to exercise Related to Body mass index (BMI) 23.0-23.9, adult Lifestyle education Related to B liliana mass index (BMI) 23.0-23.9, adult Patient education booklet given Related to Varicose veins of right lower extremity with other complications Pre and post instruc tions reviewed and provided Related to Varicose veins of right lower extremity with other complications Assessments Type Assessment Date No Information Patient Care Teams Name Effective Dates (start - stop) Status Members No Information
== END 2025-01-22 12:19 | disposition home or self-care (01) ==
PROVIDERS: PCP Registered Nurse; Visit Provider Urology
DX: N20.0 Calculus of kidney (principal)
CPT/HCPCS: 99203

== ENCOUNTER → 2025-01-22 11:40 | Outpatient (BNVA) | payer MEDICAID, SELFPAY | PROVIDERS: PCP Registered Nurse; Visit Provider Urology | DX: N20.0 Calculus of kidney (principal) | CPT/HCPCS: 99202 ==

== ENCOUNTER 2025-02-05 08:54 | Emergency (ER) | payer MEDICAID, SELFPAY ==
--- NOTE | ~2025-02-05 | XR_ITS ---
EXAMINATION: XR CHEST 2 VIEWS HISTORY: cough COMPARISON: Comparison is made with the prior examination dated 11/08/2018. FINDINGS: PA and lateral views of the chest are submitted. The lungs are expanded and clear. There is no pleural effusion, pneumothorax, or pulmonary vascular congestion. The heart is normal in size. The bones are intact. XR/XR chest 2V IMPRESSION: No acute cardiopulmonary abnormality. Electronically signed by: Royce Mack MD 02/05/2025 11:45 AM SONIA
[2025-02-05 09:15] VITALS: BP 117/57; PULSE 76; RESP 18; TEMP 36.8; O2SAT 98; BMI 24.3
[2025-02-05 11:27] LABS: Appearance Urine Clear; Color Urine Yellow; Glucose Urine UA Negative (Negative); Leukocyte Esterase Urine Negative (Negative); Nitrite Urine Negative (Negative); Specific Gravity - Urine 1.025 (1.005-1.025); UPreg QC Valid YES; Urine Blood Negative (Negative); Urine Ketones Trace mg/dL (Negative); Urine Pregnancy NEGATIVE (NEGATIVE); Urine Protein Negative (Neg-Trace)
[2025-02-05 11:33] LABS: IDNOW Serial# 58CA691E; Strep A Nucleic Acid Negative (Negative)
--- NOTE | 2025-02-05 11:36 | ED.URI ---
HPI - URI/Sore Throat General Chief Complaint: Upper Respiratory Symptoms Stated Complaint: Sore throat Time Seen by Provider: 02/05/25 12:06 Source: patient, RN notes reviewed and old records reviewed Mode of arrival: ambulatory Limitations: no limitations History of Present Illness ED Provider: Nicole RODRIGUEZ Narrative: Patient is a 34-year-old female with history of migraines presenting to the emergency department with complaint of hoarse voice since Saturday, then developed cough productive of yellow-green sputum, worse at night. Denies fevers. States daughter is sick with similar symptoms. Denies chest pain or palpitations. Denies any abdominal pain, nausea, vomiting, diarrhea. Related Data Home Medications ?Medication ?Instructions ?Recorded ?Confirmed buprenorphine 8 mg-naloxone 2 mg 1 film sublingual DAILY 01/22/25 sublingual film (Suboxone) Previous Rx's ?Medication ?Instructions ?Recorded prednisone 20 mg tablet 20 mg PO DAILY #7 tabs 02/05/25 Allergies Allergy/AdvReac Type Severity Reaction Status Date / Time No Known Allergies Allergy Verified 02/05/25 09:18 [No Known Allergies*] Review of Systems Review of Systems: As per HPI Yes all other systems are reviewed and are negative Constitutional: Constitutional: Reports as per HPI [facility] Past Medical History Medical History Persistent headaches Migraines Social History Social History Patient Tobacco Use Status: Tobacco use Unknown Advance Directives: No Advance Directives Information Provided: No Do you have a plan to hurt others: No Plan Physical Exam Vital Signs: Vital Signs: Last Vital Signs Temp 98.2 F 02/05/25 09:15 Pulse 69 02/05/25 12:13 Resp 18 02/05/25 12:13 BP 120/75 02/05/25 12:13 Pulse Ox 99 02/05/25 12:13 O2 Del Method Room Air 02/05/25 12:13 BMI result Body Mass Index 24.3 Vital signs have been reviewed and appear to be correct. Blood pressure normal. Heart rate normal. Respiratory rate normal. Temperature normal. Oxygen saturation normal. Const: General: cooperative, healthy appearing and no acute distress Orientation/consciousness: oriented to person, oriented to place, oriented to time and patient oriented x3 Limitations: no limitations HEENT: Head: Yes normocephalic and Yes atraumatic Ears: external ears normal General nose exam: Normal external nose present Face and sinus: Yes face symmetric Mouth: Normal oral and palatal mucosa present, lip normal, tongue normal, oropharynx normal, moist mucous membranes, no muffled voice, no trismus and other (hoarse voice) Throat: Yes tonsils normal, Yes uvula midline, Yes abnormal tonsil (+ erythema, no edema or exudate), No peritonsillar mass and No uvular edema Eyes: Pupils: Equal, round and reactive pupils present Neck: Neck: Yes normal visual inspection, Yes no lymphadenopathy and Yes supple Resp: Effort & Inspection: normal respiratory effort and able to speak in complete sentences Auscultation: clear to auscultation bilaterally Cardio: Rate: regular rate Rhythm: regular rhythm Heart sounds: S1 normal heart sound present and S2 normal heart sound present GI: Palpation (GI): Soft to palpation and nontender Auscultation: normoactive bowel sounds : General: Yes no CVA tenderness Back/Spine/Pelvis: Back: no CVA tenderness Skin: General skin exam: elasticity normal and turgor normal Neuro: General: oriented to person, oriented to place, oriented to time, patient oriented x3, moves all extremities, no focal motor deficits and CN's II-XI intact bilaterally Cranial nerves: Yes Equal, round and reactive pupils present Cognition (Neuro): normal cognition Extrem: General: Yes full ROM, Yes no pedal edema and Yes no calf tenderness Psych: Mental Status: mental status grossly normal Affect: normal affect Thought process: Normal thought process present Course Course Course Narrative: This is a Rapid Medical Examination (RME) performed by Mc Dunbar PA-C in triage. Full HPI, ROS, assessment and treatment plan per primary provider in the Main ED. 34 yo female here for eval of hoarse voice/ sore throat x5 days, worsening. assoc cough productive of yellow/ green sputum. worse at night. Plan: viral/strep swabs, CXR Medical Decision Making Medical Decision Making MDM Narrative: Patient is a 34-year-old female with history of migraines presenting to the emergency department with complaint of hoarse voice since Saturday, then developed cough productive of yellow-green sputum, worse at night. On exam patient is awake, A+Ox3, VS WNL, afebrile, normal neurological exam without focal deficits, physical exam findings as above. Given reported symptoms and physical exam findings, initial differential includes but is not limited to viral illness, covid, flu, rsv, strep pharyngitis, other viral illness, bronchitis, pneumonia. Strep and viral swabs negative. X-ray chest notable for no evidence of pneumonia. My interpretation is in agreement with the radiologist's interpretation. Results discussed with patient and all questions answered. Will treat with course of prednisone, advised Tylenol/ibuprofen, adequate rest and fluids. Return precautions discussed. Patient verbalized understanding of and agreement with plan. Differential Diagnosis Differential Diagnoses: The differential diagnosis associated with the presentation includes As per [facility] Lab Data [facility] Lab Attestation statement: I reviewed the patient's lab results. as per [facility] Labs: Lab Results 02/05/25 02/05/25 Range/Units 11:04 12:04 Urine Color Yellow Urine Appearance Clear Urine pH 6.0 (5.0-9.0) Ur Specific [place] 1.025 (1.005-1.025) Urine Protein Negative (Neg-Trace) mg/dL Urine Glucose (UA) Negative (Negative) mg/dL Urine Ketones Trace (Negative) mg/dL Urine Blood Negative (Negative) Urine Nitrite Negative (Negative) Ur Leukocyte Esterase Negative (Negative) Urine Test NEGATIVE (NEGATIVE) Influenza Type A (PCR) NEGATIVE (Negative) Influenza Type B (PCR) NEGATIVE (Negative) RSV RNA Qual (PCR) NEGATIVE (Negative) SARS-CoV-2 RNA (RT-PCR) NEGATIVE (Negative) S. pyogenes GrpA MATTI Negative (Negative) Independent Interpretation I performed an independent interpretation of an: Plain X-Ray Interpretation: No evidence of pneumonia on chest xray Radiology Impression Discussion of test interpretation with radiology: I have reviewed the radiologist's reading. Radiologist Impression: EXAMINATION: XR CHEST 2 VIEWS HISTORY: cough COMPARISON: Comparison is made with the prior examination dated 11/08/2018. FINDINGS: PA and lateral views of the chest are submitted. The lungs are expanded and clear. There is no pleural effusion, pneumothorax, or pulmonary vascular congestion. The heart is normal in size. The bones are intact. XR/XR chest 2V IMPRESSION: No acute cardiopulmonary abnormality. External Record Review External record reviewed: Inpatient record, Office record and Outpatient record Prescription Management I considered prescription management with: Other Discharge Plan Discharge Clinical Impression: Viral infection Patient Disposition: Home, Self-Care Instructions: Pharyngitis (ED), Viral Syndrome (ED) Additional Instructions: You were evaluated in the emergency department today for sore throat and cough. Your Covid, flu, RSV, and strep tests were all negative. Your symptoms are likely related to a viral illness which will resolve on its own with time and rest. You should ensure adequate fluid intake, and can use Tylenol 650 mg or ibuprofen 600 mg every 6 hours as needed for fever or discomfort. We also recommend using over the counter nasal saline spray to thin your mucous. You are being prescribed a course of steroids to decrease inflammation. Please follow-up with your primary care provider this week. Return to the emergency department if you develop chest pain, worsening shortness of breath, difficulty swallowing, fever 100.4? F or greater or any other concerning symptoms. Prescriptions: New prednisone 20 mg tablet 20 mg PO DAILY Qty: 7 0RF No Action buprenorphine-naloxone [Suboxone] 8-2 mg film 1 film sublingual DAILY Stand Alone Forms: Work/School Release Print Language: [place] Islander
[2025-02-05 12:13] VITALS: BP 120/75; PULSE 69; RESP 18; O2SAT 99
[2025-02-05 12:51] LABS: Influenza A PCR NEGATIVE (Negative); Influenza B PCR NEGATIVE (Negative); Resp Syncy Virus RNA Qual PCR NEGATIVE (Negative); SARS COV2 PCR INHOUSE NEGATIVE (Negative)
--- NOTE | 2025-02-05 13:28 | PC.NURSE ---
Nicole (ED provider) at bedside speaking with patient. Plan for discharge home.
[2025-02-05 13:32] VITALS: BP 121/62; PULSE 75; RESP 16; O2SAT 100
[2025-02-05 13:35] VITALS: BP 121/62; PULSE 75; RESP 16; TEMP 36.8; O2SAT 100
--- OUTSIDE RECORDS SUMMARY | 2025-02-05 13:58 | XMS_ITS | Encounter Summary ---
Author Organization [facility] Address [address] [place] [address] Care Team Providers Care Special Needs Librarian Name Role Phone Tigre Marshall FREELANCE OPERATOR-C Primary Care Provider [phone] Reason for Visit * Reason Comments Alcohol And Drug Screening Encounter Details Date Type Department Care Team (Late Contact Info) Description 07/13/2016 / Visits [address] [phone] Edyta Alberto, COUNSELOR [address] [place] [address] Abuse, drug or alcohol (Primary Dx) Social [...] Description 02/09/2025 4:00 PM EDT Office Visit [address] [phone] Tigre Marshall FNP-C [address] [place] [address] documented as of this encounter Visit Diagnoses Diagnosis Abuse, drug or alcohol ([facility])- Primary Other, mixed, or unspecified nondependent drug abuse, unspecified documented in this encounter Care Teams Special Needs Librarian Relationship Specialty Start Date End Date Tigre Marshall FNP-C [address] [place] [address] PCP - General Internal Medicine 11/14/23 documented as of this encounter
--- OUTSIDE RECORDS SUMMARY | 2025-02-05 13:58 | XMS_ITS | Clinical Summary ---
Author Organization [facility] Address [address] [place] [address] Care Team Providers Care Hand Weaver Name Role Phone Tigre Marshall CLOTHING MAN-C Primary Care Provider [phone] Source Comments PLEASE NOTE, if this patient [...] mcg/actuation nasal sprayIndications: Oral lesion Place 1 [place] in both nostrils once daily 16 g [...] 2) infection 018 Opioid dependence in remission ([facility]) 016 Resolved Problems Problem Noted Date Diagnosed Date Resolved Date Acute hepatitis C virus infection 05/29/2017 07/31/2022 Overview (05/29/2017): Followed by [facility] gastro[facility]ology Substance abuse ([facility]) 07/30/2016 Overview (07/30/2016): Pt came to see [...] 02/09/2025 4:00 PM EDT Office Visit [facility] [address] [place] [address] Tigre Marshall FNP-Bas[place] [address] [place] [address] Health Maintenance Due Date Last Done Comments [...] Biopsy Discontinued Excision/Leep Discontinued HPV Genotyping Discontinued [id number] Discontinued Imm-DTaP/Tdap/Td Discontinued Vaginal Pap Discontinued Vulvoscopy [...] A1C 5.1 <5.7 % of total Hgb [facility] Comment: For the purpose of screening for the presence of diabetes: <5.7% ? Consistent with the absence of diabetes 5.7-6.4% ?Consistent with increased risk for diabetes ?(prediabetes) > or =6.5% ??Consistent with diabetes This assay result is consistent with a decreased risk of diabetes. Currently, no consensus exists regarding use of hemoglobin A1c for diagnosis of diabetes in children. According to [place] Diabetes Association (ADA) guidelines, hemoglobin A1c <7.0% represents optimal control in non- diabetic patients. Different metrics may apply to specific patient populations. Standards of Medical Care in Diabetes(ADA). ?? Blood Blood / Unknown 12/26/2023 1 0:52 AM EST 12/26/2023 10:53 AM EST Narrative [employer] - 12/27/2023 5:55 AM EST FASTING:UNKNOWN Tigre Marshall CLOTHING MAN-C LAB - BLOOD DRAW Final Re sult Performing Organization Address [facility] de Phone Number [facility] [address] [address], [place] [address] [address] * HIV 1/2 AG & AB W/RFLX (4TH GEN) (05/23/2023 2:54 PM EDT) [facility] HIV AG/AB, 4TH GEN NON-REAC TIVE NON-REAC TIVE [facility] Comment: HIV-1 antigen and HIV-1/HIV-2 antibodies [...] ?? For additional information please refer to http://education.Jotvine.com.LetMeGo/faq/OHU049 (This link is being provided for informational/ educational purposes only.) The performance of this assay has not been clinically validated in patients less than 2 years old. Blood Blood / Unknown 05/23/2023 2 :54 PM EDT 05/23/2023 2:55 PM EDT Elo Borja CLOTHING MAN-BC LAB - BLOOD DRAW Final Re sult Performing Organization Address [facility]/ZIP Co de Phone Number [facility] [address] [address], [place] [address] [address] * PAP SMEAR W/HPV, ABSTRACTED (06/12/2019 2:53 PM EDT) PAP SMEAR INTERPRETATION NORMAL NORMAL [facility] HPV (HUMAN PAPILLOMA) NEGATIVE NEGATIVE [facility] HPV TYPE 16 NEGATIVE NEGATIVE [facility] HPV TYPE 18 NEGATIVE NEGATIVE [facility] Specimen from uterine cervix (specimen) 06/12/2019 2:53 PM EDT Impressions [facility] - 06/18/2019 2:52 PM EDT Per [facility]: ThinPrep Pap, Imaged: Negative for squamous intraepithelial lesion and malignancy High Risk HPV: NEGATIVE us Provider [facility] - NO BLOOD DRAW Final Result [facility] [address] [place] [address], from Last 3 Months or Most Recently Relevant to Health Maintenance [place] D[facility]AL [facility] SAFETY [place] [address] [address] ACO Care Teams Hand Weaver Relationship Specialty Start Date End Date Tigre Marshall FNP-C [address] [place] [address] PCP - General Internal Medicine 11/14/23
== END 2025-02-05 13:35 | disposition home or self-care (01) ==
PROVIDERS: Physician Assistant Medical; Emergency Provider Emergency Medicine
DX: B34.9 Viral infection, unspecified (principal)
CPT/HCPCS: 0241U; 71046; 81003; 81025; 87651; 99283

== ENCOUNTER → 2025-02-05 11:30 | Outpatient (BNV) | payer MEDICAID, SELFPAY | PROVIDERS: Visit Provider Radiology Diagnostic Radiology | DX: R05.9 Cough, unspecified (principal) | CPT/HCPCS: 71046 ==

== ENCOUNTER 2025-07-08 12:55 | Outpatient (REF) | payer MEDICAID, SELFPAY ==
--- NOTE | ~2025-07-08 | US_ITS ---
EXAMINATION: US KIDNEY BILATERAL HISTORY: N20.0 - Calculus of kidney TECHNIQUE: Real-time grayscale ultrasound imaging of the kidneys was performed and images were reviewed. COMPARISON: Correlation is made with an unenhanced CT of the abdomen dated 12/11/2024. FINDINGS: Right kidney: The right kidney measures 11.2 x 3.5 x 5.7 cm. Renal parenchymal echotexture and thickness are normal. There are no masses. There is a 2 mm nonobstructing calculus at the lower pole. There is no hydronephrosis. Left Kidney: The left kidney measures 10.4 x 5.4 x 5.2 cm. Renal parenchymal echotexture and thickness are normal. There are no masses. There is no hydronephrosis or renal calculi. US/US renal BI IMPRESSION: 2 mm nonobstructing right renal calculus. Otherwise unremarkable renal ultrasound. Electronically signed by: Royce Mack MD 07/08/2025 01:32 PM EDT
--- OUTSIDE RECORDS SUMMARY | 2025-07-08 12:57 | XMS_ITS | Clinical Summary ---
Author Organization [facility] Address [address] [place] [address] Care Team Providers Care Plastic Machine Operator Name Role Phone Tigre Marshall SFDC SOLUTION ARCHITECT-C Primary Care Provider [phone] Source Comments PLEASE NOTE, if this patient is a minor, it may be UNLAWFUL to discuss sensitive information that is contained in these records (such as FAMILY PLANNING, MENTAL HEALTH or SUBSTANCE ABUSE) with the minor patient's parent or other person without the patient's specific authorization.[facility] Allergies No known active allergies Medications predniSONE (DELTASONE) 20 mg tablet Take 20 mg by mouth once daily 5 Active SUBOXONE 8-2 mg SL film TAKE 1 FILM SUBLINGUALLY EVERY DAY 5 Active benzonatate (TESSALON) 100 mg capsuleIndicati ons:Post-nasal drip Take 1 Capsule by mouth 3 (three) times daily as needed for cough 30 Capsule 5 Active fluticasone (FLONASE) 50 mcg/actuation nasal sprayIndication s:Post-nasal drip SPRAY 1 SPRAY INTO EACH NOSTRIL EVERY DAY 32 mL 1 5 Active Active Problems Problem Noted Date Diagnosed Date Migraine without status migrainosus, not intract able 07/31/2022 History of hepatitis C 07/31/2022 HSV-2 (herpes simplex virus 2) infection 018 Opioid dependence in remission ([facility]) 0 07/12/2016 Resolved Problems Problem Noted Date Diagnosed Date Resolved Date Acute hepatitis C virus infection 05/29/2017 07/31/2022 Overview (05/29/2017): Followed by [facility] gastroenterology Substance abuse ([facility]) 07/30/2016 07/30/2016 Overview (07/30/2016): Pt came to see a PCP and [facility]ADC schedule apts where set and there has been no show for her apts and Calls. Tobacco abuse disorder 07/12/201607/31 Family History Relation Name Status Comments Father Alive Mother Alive Social History Tobacco Use Types Packs/Day Years Used Date Smoking Tobacco: Former Cigarettes Smokeless Tobacco: Former Tobacco Cessation:Counseling Given: Not Answered Alcohol Use Standard Drinks/Week Comments No 0 [...] Safety and Environment Answer Date Myron rded How often does anyone, inclu ding family and friends, physically hurt you? 1 02/09/2025 Utilities Answer Date Recorded Utilities 0 07/20/2019 [...] Sign Reading Time Taken Comments Blood Pressure 110/68 02/12/2025 10:12 AM EDT Pulse 80 02/12/2025 10:12 AM EDT Temperature 36.9 C (98.4 F) 02/09/2025 4:14 PM EDT Respiratory Rate 16 02/12/2025 10:12 AM EDT Oxygen Saturation 98% 02/12/2025 10:12 AM EDT Inhaled Oxygen Concentration - - Weight 64 kg (141 lb) 02/12/2025 10:12 AM EDT Height 170.2 cm (5' 7 ) 02/12/2025 10:12 AM EDT Body Mass Index 22.08 02/12/2025 10:12 AM EDT Plan of Treatment Health Maintenance Due Date Last Done Comments Anxiety Screening 1988 Imm-Hepatitis B (1 of 3 - 19 + 3-dose series) 2007 Imm-Pneumococcal (1 of 2 - PCV) 2007 HPV Screening 06/12/2024 06/12/2019 Imm-Influenza (#1) 2025 Annual Wellness (Adult): Indicated (All Coverage) 02/09/2026 02/09/2025, 12/19/2023, 07/31/2022 Relationship Safety Screening/Counseling 02/09/2026 02/09/2025, 12/19/2023, 11/06/2022 Tobacco Screening 02/09/2026 02/09/2025, 12/19/2023 Diabetes Screening 02/10/2028 02/09/2025, 0 02/09/2025, 12/26/2023, Additional history exists Hypertension Screening (#1) 02/12/2028 Pap Smear 02/13/2028 02/12/2025, 06/12/2019 Cervical Cancer Screening 02/12/2030 Pap + HPV 02/12/2030 02/12/2025, 06/12/2019 Alcohol and Drug Screen Completed 02/10/20, 12/19/2023, 11/06/2022, Additional history exists Depression Annual Screen Completed 02/09/2025, 12/02 HIV Screening Completed 02/09/2025, 05/03, 01/08/2023, Additional history exists Cervical Ablation/Cold-Knife Conization Discontinued Cervical Cryotherapy Discontinued Colposcopy Discontinued Endometrial Biopsy Discontinued Excision/Leep Discontinued HPV Genotyping Discontinued [id number] Discontinued Imm-DTaP/Tdap/Td Discontinued Vaginal Pap Discontinued Vulvoscopy Discontinued Procedures Procedure Name Priority Date/Time Associated Diagnosis Comments THINPREP IMAGING PAP, HPV MRNA E6/E7 RFLEX HPV 16,18/45 CT/NG Routine 02/12/2025 10:22 AM EDT Screening for HPV (human papillomavirus) HIV 1/2 AG & AB W/RFLX (4TH GEN) Routine 02/09/2025 4:47 PM EDT Screening examination for STI HEMOGLOBIN GLYCOSYLATED A1C Routine 02/09/2025 4:47 PM EDT Routine general medical examination at a health care facility PAP SMEAR W/HPV, ABSTRACTED Routine 06/12/2019 2:53 PM EDT from Last 3 Months or Most Recently Relevant to Health Maintenance Results * THINPREP IMAGING PAP, HPV MRNA E6/E7 RFLEX HPV 16,18/45 CT/NG (02/12/2025 10:22 AM EDT) CHLAMYDIA TRACHOMATIS RNA, TMA NOT DETECTED NOT DETECTED [facility] NEISSERIA GONORRHOEAE RNA, TMA NOT DETECTED NOT DETECTED [employer] COMMENT [employer] CLINICAL INFORMATION See Note [employer] Comment:None given LMP See Note [employer] Comment:NONE GIVEN PREV. PAP See Note [employer] Comment:NONE GIVEN PREV. BX See Note [employer] Comment:NONE GIVEN SOURCE See Note [employer] Comment:Cervix STATEMENT OF ADEQUACY See Note [employer] Comment: Satisfactory for evaluation. Endocervical/transformation zone component present. INTERPRETATION/RESU LT See Note [employer] Comment: Cytology Results: Negative for intraepithelial lesion or malignancy. COMMENT See Note [employer] Comment: This case could not be evaluated with computer assisted technology. The slide was manually screened according to routine procedures. INSPECTOR FUEL HOSE See Note [facility] Comment: YP, CT(ASCP) CT screening location: [place] [address] COMMENT [employer] HPV MRNA E6/E7 Not Detected Not Detected [employer] [facility] Comment: Methodology: Patient Registrar-Mediated Amplification This assay detects E6/E7 viral messenger RNA (mRNA) from 14 high-risk HPV types (16,18,31,33,35,39,45,51,52,56,58,59,66,68). Cervical sources are required for HPV testing. If a vaginal source from a patient who has had a total hysterectomy with removal of cervix was submitted, please contact the testing laboratory for alternative testing options. For additional information, please refer to http://education.Troppin/faq/VHQ725h4 (This link if provided for information/ educational purposes only.) Swab Cervix uteri structure / Unknown 02/12/2025 10:22 AM EDT 02/15/2025 8:47 AM EDT Narrative [facility] - 02/17/2025 12:14 PM EDT EXPLANATORY NOTE: The Pap is a screening test for cervical cancer. It is not a diagnostic test and is subject to false negative and false positive results. It is most reliable when a satisfactory sample, regularly obtained, is submitted with relevant clinical findings and history, and when the Pap result is evaluated along with historic and current clinical information. The analytical performance characteristics of this assay, when used to test SurePath(TM) specimens have been determined by [employer]. The modifications have not been cleared or approved by the FDA. This assay has been validated pursuant to the CLIA regulations and is used for clinical purposes. For additional information, please refer to https://[employer]/faq/FYR532 (This link is being provided for information/ educational purposes only.) Royce Wesley MD LAB - PATHOLOGY AND CYTOLOGY AM BULATORY Final Result [facility] [address] [address], [facility] [address] [address] * HIV 1/2 AG & AB W/RFLX (4TH GEN) (02/09/2025 4:47 PM EDT) HIV AG/AB, 4TH GEN NON-REAC TIVE NON-REAC TIVE [facility] Comment: HIV-1 antigen and HIV-1/HIV-2 antibodies were not detected. There is no laboratory evidence of HIV infection. PLEASE NOTE: This information has been disclosed to you from records whose confidentiality may be protected by state law. If your state requires such protection, then the state law prohibits you from making any further disclosure of the information without the specific written consent of the person to whom it pertains, or as otherwise permitted by law. A general authorization for the release of medical or other information is NOT sufficient for this purpose. For additional information please refer to http://education.Troppin/faq/PGL963 (This link is being provided for informational/ educational purposes only.) The performance of this assay has not been clinically validated in patients less than 2 years old. Blood Blood / Unknown 02/09/2025 4 :47 PM EDT 02/09/2025 4:47 PM EDT Narrative [employer] - 02/11/2025 9:56 AM EDT FASTING:NO Dtime SFDC SOLUTION ARCHITECT-C LAB - BLOOD DRAW Final Re sult Performing Organization Address [facility] de Phone Number [employer] [address] [place] [address], [place] [address] [address] * HEMOGLOBIN GLYCOSYLATED A1C (02/09/2025 4:47 PM EDT) HEMOGLOBIN A1C 5.3 <5.7 % of total Hgb [facility] Comment: For the purpose of screening for the presence of diabetes: <5.7% Consistent with the absence of diabetes 5.7-6.4% Consistent with increased risk for diabetes (prediabetes) > or =6.5% Consistent with diabetes This assay result is consistent with a decreased risk of diabetes. Currently, no consensus exists regarding use of hemoglobin A1c for diagnosis of diabetes in children. According to [place] Diabetes Association (ADA) guidelines, hemoglobin A1c <7.0% represents optimal control in non- diabetic patients. Different metrics may apply to specific patient populations. Standards of Medical Care in Diabetes(ADA). Blood Blood / Unknown 02/09/2025 4 :47 PM EDT 02/09/2025 4:47 PM EDT Narrative [employer] - 02/11/2025 9:56 AM EDT FASTING:NO [employer] [facility] SOLUTION ARCHITECT-C LAB - BLOOD DRAW Edited R esult - Final Performing Organization Address [facility] Co de Phone Number [employer] [address] [place] [address], [place] [address] [address] * PAP SMEAR W/HPV, ABSTRACTED (06/12/2019 2:53 PM EDT) PAP SMEAR INTERPRETATION NORMAL NORMAL [facility] HPV (HUMAN PAPILLOMA) NEGATIVE NEGATIVE [facility] HPV TYPE 16 NEGATIVE NEGATIVE [facility] HPV TYPE 18 NEGATIVE NEGATIVE [facility] Specimen from uterine cervix (specimen) 06/12/2019 2:53 PM EDT Impressions [facility] - 06/18/2019 2:52 PM EDT Per NEPA: ThinPrep Pap, Imaged: Negative for squamous intraepithelial lesion and malignancy High Risk HPV: NEGATIVE us Provider [facility] - PATHOLOGY AND CYTOLOGY AMB ULATORY Final Result [facility] [address] [place] [address], from Last 3 Months or Most Recently Relevant to Health Maintenance Insurance [place] MEDICAID DENTAL [facility] S[employer] NET DENTAL [address] [employer] Care Teams Plastic Machine Operator Relationship Specialty Start Date End Date Tigre Marshall FNP-C [address] [place] [address] PCP - General Internal Medicine 11/14/23
--- OUTSIDE RECORDS SUMMARY | 2025-07-08 12:57 | XMS_ITS | Clinical Summary ---
Author Organization [facility] Address [address] [place] [address] Care Team Providers Care Science Editor Name Role Phone Unavailable Primary Care Provider Unavailabl e Encounters Date Type Department Care Team Description 06/22/2025 Population Health Risk Score [facility] ([facility] Department [address] [address] [place] [id number] Provider, Population Health Generic from Last 3 Months Social History Tobacco Use Types Packs/Day Years Used Date Smoking Tobacco: Never Assessed Comments Unknown Sex and Gender Information Value Date Recorded Sex Assigned at Not on file Legal Sex Female 9:29 PM EDT Gender Identity Not on file Sexual Orientation Not on file Plan of Treatment Health Maintenance Due Date Last Done Comments Depression Screening 1988 HIV Screening 1988 SDOH Screening 1988 Disability Screening 1988 Alcohol/Substance Use Screening 2000 Tobacco Screening 2000 Family Planning (PISQ) 2003 HPV Vaccines (1 - 3-dose series) 2003 Hepatitis C Screening 2006 DTaP/Tdap/Td Vaccines (1 - Tdap) 2007 Hepatitis B Vaccines (1 of 3 - 19+ 3-dose series) 2007 Pap Smear 2009 Cervical Cancer Screening 2018 HPV/Cotest 2018 COVID-19 Vaccine ( - 2023-2 5 season) 2024 Influenza Vaccine (#1) 2025 Zoster Vaccines (1 of 2) 2038 RSV Patients and Pa tients Aged 60 years or older (1 - 1-dose 75+ series) 2063 HIB Vaccines Aged Out No longer eligi ble based on patient's age to complete this topic Hepatitis A Vaccines Aged Out No long er eligible based on patient's age to complete this topic IPV Vaccines Aged Out No longer eligi ble based on patient's age to complete this topic Meningococcal B Vaccine Aged Out No l onger eligible based on patient's age to complete this topic Meningococcal Vaccine Aged Out No johnna shaan eligible based on patient's age to complete this topic Pneumococcal Vaccine: Pediat rics (0 to 5 Years) and At-Risk Patients (6 to 49) Years Aged Out No longer eligible b ased on patient's age to complete this topic RSV under 20 months Aged Out No longe r eligible based on patient's age to complete this topic Rotavirus Vaccines Aged Out No longer eligible based on patient's age to complete this topic
== END 2025-07-08 12:56 | disposition home or self-care (01) ==
LOC: HO.US 12:55
PROVIDERS: PCP Dentist General Practice; Visit Provider Urology
DX: N20.0 Calculus of kidney (principal)
CPT/HCPCS: 76775

== ENCOUNTER → 2025-07-08 12:56 | Outpatient (BNV) | payer MEDICAID, SELFPAY | PROVIDERS: PCP Dentist General Practice; Visit Provider Radiology Diagnostic Radiology | DX: N20.0 Calculus of kidney (principal) | CPT/HCPCS: 76775 ==

== ENCOUNTER 2025-07-22 08:58 | Outpatient (AMB) | payer MEDICAID, SELFPAY ==
--- OUTSIDE RECORDS SUMMARY | 2024-11-09 05:45 | XMS_ITS | Continuity of Care Document ---
Author Organization [facility] Address [address] [place] [address] Phone Care Team Providers Care Rn Neonatal Icu Name Role Phone Miguel JEONG, RVT, DONATO, Royce Unavailable U navailable Allergies, Adverse Reactions, Alerts Substance Reaction Status Criticality No Known Allergies Active No Inform ation Procedures Procedure Date Office/Outpt E&M Established 15 Mins- CT & [place] Duplex Scan-extrem Veins; Uni/ CT & [place] D Office/Outpt E&M Established 15 Mins- CT & [place] Duplex Scan-extrem Veins; Uni/ CT & MA A Duplex Scan-extrem Veins; Uni/ CT & [place] J Duplex Scan-extrem Veins; Uni/ CT & [place] J Inj Scleros Solut; Mx Veins 1- CT & MA J Ultrason Guidan Needle Bx-rad- CT & MA J Varithena, Single Truncal Vein - CT & MA Endovenous Laser, 1st Vein- CT & MA Ultrason Guidan Needle Bx-rad- CT & MA J Inj Sclerosing Solution; Sngl- CT & MA J Offic/outpt E&m Estab 5 Min Trial- Telem edicine CT & [place] Office/Oupt E&M New Pt 45 Mins Duplex Scan-extrem Veins; Uni/ Advance Directives Directive Yes / No Effective Date File Name No Information Encounters Encounter Description Practice Location Reason(s) For Visit Diagnoses Date Provider Providers Copied on Encounter Office/Outpt E&M Established 15 Mins- CT & [place] [facility], [address] [place] [address] Dr H[place]ron [address]SuRubén chambers MD, [id number], [place] tel:[phone] [place] Chronic venous hypertension (idiopathic) with other complications of bilateral lower extremityRestl ess legs syndromeVenous insufficiency (chronic) (peripheral)Cr amp and spasm 4 Miguel JEONG RVT, DONATO Crane. [address] [place] [address], [place], [id number] , [place]. tel:[phone] [facility] MD [facility], [address] [place] [address] Dr Huitron 1000SuRubén chambers [place], [id number], [place] tel:[phone] [facility] of right lower extremity with pain 4 Miguel JEONG RVT, DONATO Crane. [address] [place] [address], [place], [id number] , [place]. tel: [phone] Referring Provider: Royce Rivera MD, RVT, DONATO, [address] [place] [address], [facility] [place], [address] . tel:[phone] Office/Outpt E&M Established 15 Mins- CT & [place] [facility], [address] [place] [address] Dr H[address]ron 1000[facility] 1000Rubén [place], [id number], [place] tel:[phone] [facility] Venous insufficiency (chronic) (peripheral) 4 iMguel JEONG RVT, RPVI Robert. [address] [place] [address], [facility] [place], [id number] , [place]. tel:[phone] Brooke Ward [facility], [address] [place] [address] Dr Huitron 1000Suite Rubén Maldonado [place], [id number], [place] [phone] CVR - [facility] Encounter for follow-up examination after completed treatment for conditions other than malignant nePain in right leg 4 Miguel JEONG RVT, RPVI Robert. [address] [facility], [address], [place], [id number] , [place]. tel:[phone] Referring Provider: Royce Rivera MD, RVT, DONATO, [facility] [facility] [address], [place], [address] . tel:[phone] [facility], [address] [place] [address] Dr [address] [address]Rubén [place], [id number], [place] tel:[phone] [facility] Encounter for follow-up examination after completed treatment for conditions other than malignant neoplasmPain in right leg 4 Miguel JEONG RVT, RPVI Robert. [address] [facility], [address], [place], [id number] , [place]. tel:[phone] Referring Provider: Royce Rivera MD, RVT, DONATO, [address] [place] [address] [address], [place], [address] . tel:[phone] [place] [facility], [address] [place] [address] Dr [address]Rubén [place], [id number], [place] tel:[phone] [facility] Encounter for follow-up examination after completed treatment for conditions other than malignant nePain in right leg 4 Miguel JEONG RVT, RPVI Robert. [address] [place] [address], [address], [place], [id number] , [place]. tel:[phone] Referring Provider: Royce Rivera MD, RVT, RPVI, [address] [place] [address] [address], [place], [address] . tel:[phone] [facility], [address] [place] [address] Dr [address] [address]Rubén [place], [id number], [place] tel:[phone] [place] Varicose veins of right lower extremity with other complications 4 Miguel JEONG RVT, RPVI Robert. [address] [place] [address], [address], [place], [id number] , [place]. tel:[phone] Referring Provider: Royce Rivera MD, RVT, DONATO, [address] [facility] Suite [facility], [place], [address] . tel:[phone] [facility], [address] [place] [address] Dr [address] 1000Suite 1000Rubén [place], [id number], [place] tel:[phone] [place] Varicose veins of right lower extremity with other complications 4 Miguel JEONG RVT, RPVI Robert. [address] [facility], [place] [address], [place], [id number] , [place]. tel:[phone] [place] [facility], [address] [place] [address] Dr [address] 1000Suite 1000Rubén [place], [id number], [place] tel:[phone] [place] Chronic venous hypertension (idiopathic) with inflammation of right lower extremity 4 Miguel JEONG RVT, RPVI Robert. [facility] [place] [address], [place], [id number] , [place]. tel:[phone] [facility], [address] [place] [address] Dr [address] 1000Suite 1000Rubén [place], [id number], [place] tel:[phone] [facility] No Information 4 Miguel JEONG RVT, RPVI Robert. [address] [place] [address], [place], [id number] , [place]. tel:[phone] Offic/outpt E&m Estab 5 Min Trial- Telemedicine CT & [place] [facility], [address] [place] [address] Dr H[address] 1000Suite 1000Rubén [place], [id number], [place] tel:[phone] [facility] Chronic venous hypertension (idiopathic) with other complications of bilateral lower extremityRestl ess legs syndromePrurit us, unspecified 4 Poncho Wallace . [address] [facility], [facility] [address], [place], [id number] , [place]. tel:[phone] Office/Oupt E&M New Pt 45 Mins [facility], [address] [place] [address] Dr [address] 1000[address], [place], [id number], tel:[phone] [place] Varicose veins of right lower extremity with other complicationsP ain in right lower legPain in right legCramp and spasmRestless legs syndromePrurit us, unspecified 4 Miguel JEONG RVT, DONATO Crane. [address] [place] [address], [facility] [place], [id number] , . tel:[phone] [facility], [address] [place] [address] Dr [address] 1000Suite 1000Rubén [place], [id number], tel:[phone] [place] Chronic venous hypertension (idiopathic) with other complications of right lower extremity 4 Miguel JEONG RVT, DONATO Crane. [address] [place] [address], [facility] [place], [id number] , . tel:[phone] Referring Provider: Royce Rivera MD, TIA, DONATO, [address] [place] [address], [facility] [place], [address] . tel:[phone] Family History Family Member Type Diagnosis Age At Onset No Information Payers Payer name Insurance type Covered alliance party ID Authoriza tion(s) Medical Assistance COUNTS INCLUDE 234 BEDS AT [facility] [id number] Social History Type Description Quantity Date Captured Comments Alcohol Use Details Unknown Caffeine Use Details Unknown Tobacco Use Status Current non-smoker Smoking Status Never Smoker Non-Smoking Tobacco Use Details : No Details Available : No Details Available Sex Female Vital Signs Date / Time: Height Weight BMI Pulse Rate Blood Pressure Temperature Respiratory Rate Body Surface Area Head Circumference Head Circ. Percentile Wt./Jasbir. Percentile BMI percentile Pulse Ox Inhaled Ox 70.310 kg (155.00 lbs) 23.6 6 kg/m eter (2) 110/70 mm[Hg] Chief Complaint And Reason For Visit No Information Reason For Referral Reason For Referral No Information Plan Of Treatment Date Type Action Status Goal Diet education completed Goal Diet education completed Goal Diet education completed Referral Ordered: Weight management: Referral to physician timeframe: 3 Months (related to Body mass index (BMI) 23.0-23.9, adult) ordered Referral Ordered: Weight management: Referral to physician timeframe: 3 Months (related to Body mass index (BMI) 23.0-23.9, adult) ordered Referral Ordered: Weight management: Referral to physician timeframe: 3 Months (related to Body mass index (BMI) 23.0-23.9, adult) ordered History Of Present Illness Encounter Date Complaint History Of Prese nt Illness No Information Functional Status Date Functional Assessmen t No Information Instructions Date Instruction Additional Infor mation Compression stocking usage as conservative measure Related to Chronic venous hypertension (idiopathic) with other complications of bilateral lower extremity Pre and post instruc tions reviewed and provided Related to Chronic venous hypertension (idiopathic) with other complications of bilateral lower extremity Lifestyle education Related to B liliana mass index (BMI) 23.0-23.9, adult Giving Encouragement to exercise Related to Body mass index (BMI) 23.0-23.9, adult Diet education Related to Body mass index (BMI) 23.0-23.9, adult Diet education Related to Body mass index (BMI) 23.0-23.9, adult Pre and post instruc tions reviewed and provided Related to Venous insufficiency (chronic) (peripheral) Patient education booklet given Related to Venous insufficiency (chronic) (peripheral) Lifestyle education Related to B liliana mass index (BMI) 23.0-23.9, adult Giving Encouragement to exercise Related to Body mass index (BMI) 23.0-23.9, adult Pre and post instruc tions reviewed and provided Related to Chronic venous hypertension (idiopathic) with other complications of bilateral lower extremity Patient education booklet given Related to Chronic venous hypertension (idiopathic) with other complications of bilateral lower extremity Pre and post instruc tions reviewed and provided Related to Varicose veins of right lower extremity with other complications Patient education booklet given Related to Varicose veins of right lower extremity with other complications Lifestyle education Related to B liliana mass index (BMI) 23.0-23.9, adult Giving Encouragement to exercise Related to Body mass index (BMI) 23.0-23.9, adult Diet education Related to Body mass index (BMI) 23.0-23.9, adult Assessments Type Assessment Date No Information Patient Care Teams Name Effective Dates (start - stop) Status Members No Information
--- NOTE | 2025-07-22 08:58 | A.OFFVIS_ITS ---
Intake Visit Reasons: 6m/US Intake Note: Pt presents to the office today for 6 MO follow up Urology med : none Blood Thinner : none Imaging : Ultrasound 07/08/2025 Table Worker Packager Required: No Accompanied by: Self / Same As Patient Allergies No Known Allergies (No Known Allergies*) Allergy (Verified 07/22/25 09:00) HPI Comments Details: Marivel is a pleasant female. She is a patient of . She is seen for the following urologic conditions - nephrolithiasis Telemedicine Evaluation 15 min Consultation [employer] Mikel Video Currently with minimal symptoms Six-month follow-up repeat imaging Renal ultrasound suggestive of small stone on right side Start vitamin B6 Nephrolithiasis Seen in ER 12/21/2024 Imaging - CT Mild right hydroureteronephrosis with 3 mm stone within the right ureterovesicular junction. No additional stones evident on the right - renal ultrasound 06/25 - 3 mm right lower pole PFSH Medical History Persistent headaches Migraines Social History Patient Tobacco Use Status: Tobacco use Unknown Review of Systems Const All systems reviewed & are unremarkable except as noted in HPI and below Reports no additional complaints Resp Reports no additional complaints GI Reports no additional complaints Reports as per HPI Musc Reports no additional complaints Physical Exam Telemedicine evaluation Appropriate responses Regular breathing rate and rhythm HEENT Head: Yes normal to inspection Ears: hearing grossly normal bilaterally Eyes General: appearance normal, both eyes and all related structures Neck Neck: Yes normal visual inspection Chest Chest palpation & inspection: normal inspection of the chest Resp Effort & Inspection: normal respiratory effort and able to speak in complete sentences Telehealth Telehealth Telehealth Platform: [employer]ancha Location of provider rendering services: practice address Location of patient: address on file Patient Identification confirmed using: Name, : Yes Telehealth method: video Patient verbally consented to treatment: Yes Patient verbally consented to billing insurance company: Yes Patient informed of any privacy concerns related to visit: Yes Assessment & Plan Assessment & Plan (1) Nephrolithiasis: Code(s): N20.0 - Calculus of kidney Category: Medical Plan Vitamin B6 Lemon water Orders: Orders US renal BI 6 Months N20.0 - Calculus of kidney Medications: New pyridoxine (vitamin B6) 50 mg PO DAILY 90 tabs 1RF 90 days N20.0 - Calculus of kidney Patient Instructions: This note is constructed using voice recognition software. While every effort has been made to ensure accuracy cigar inspector errors may have been included. Imaging studies, laboratory and physical exam results were discussed and reviewed in detail. No major barriers to patient understanding were identified. An opportunity to ask questions regarding the treatment plan was provided. All questions were answered. The patient expressed understanding and agreement with the above treatment plan. The patient is aware they should contact our office by phone for worsening of their current condition or the appearance of new urologic symptoms. Compliance is encouraged with any medications and followup testing that is ordered. It is a privilege to participate in the urologic care of your patient. If you have any questions or concerns regarding treatment for the above conditions, or other urologic issues, please do not hesitate to contact me. The office telephone contact is [phone]. Sincerely, Dr Marcelo Piper MD, [facility] - Urology Compassionate Specialist Care for the Genitourinary System Coding Level of Care Code Tele Est Pt Level 3 (92080) Complex EM visit Add On G2211 Diagnoses Nephrolithiasis N20.0
--- OUTSIDE RECORDS SUMMARY | 2025-07-22 09:58 | XMS_ITS | Clinical Summary ---
Author Organization [facility] Address [address] [place] [address] Care Team Providers Care Special Services Director Name Role Phone Tigre Marshall EXCELSIOR MACHINE TENDER-C Primary Care Provider [phone] Source Comments PLEASE NOTE, if this patient [...] 2) infection 018 Opioid dependence in remission ([facility] 0 07/12/2016 Resolved Problems Problem Noted Date Diagnosed Date Resolved Date Acute hepatitis C virus infection 05/29/2017 07/31/2022 Overview (05/29/2017): Followed by [facility] gastroenterology Substance abuse ([facility]) 07/30/2016 07/30/2016 Overview (07/30/2016): Pt came [...] Biopsy Discontinued Excision/Leep Discontinued HPV Genotyping Discontinued [id number] Discontinued Imm-DTaP/Tdap/Td Discontinued Vaginal Pap Discontinued Vulvoscopy Discontinued Procedures Procedure Name Priority Date/Time Associated Diagnosis Comments IMAGING SCANNED DOCUMENT 07/08/2025 3:00 AM EDT THINPREP IMAGING PAP, HPV MRNA E6/E7 RFLEX HPV 16,18/45 CT/NG Routine 02/12/2025 10:22 AM EDT Screening for HPV (human papillomavirus) HIV 1/2 AG & AB W/RFLX (4TH GEN) Routine 02/09/2025 4:47 PM EDT Screening examination for STI HEMOGLOBIN GLYCOSYLATED A1C Routine 02/09/2025 4:47 PM EDT Routine general medical examination at a [facility] facility PAP SMEAR W/HPV, ABSTRACTED Routine 06/12/2019 2:53 PM EDT from Last 3 Months or Most Recently Relevant to Health Maintenance Results * IMAGING SCANNED DOCUMENT (07/08/2025 3:00 AM EDT) 07/08/2025 3:00 AM EDT us Epi Piper RN SCAN IMAGING Final Result * THINPREP IMAGING PAP, HPV MRNA E6/E7 RFLEX HPV 16,18/45 CT/NG (02/12/2025 10:22 AM EDT) CHLAMYDIA TRACHOMATIS RNA, TMA NOT DETECTED NOT DETECTED [facility] NEISSERIA GONORRHOEAE RNA, TMA NOT DETECTED NOT DETECTED [facility] COMMENT [facility] [employer] CLINICAL INFORMATION See Note [facility] Comment:None given LMP See Note [employer] [facility] [employer] Comment:NONE GIVEN PREV. PAP See Note [employer] Comment:NONE GIVEN PREV. BX See Note [employer] [facility] [facility] Comment:NONE GIVEN SOURCE See Note [facility] Comment:Cervix STATEMENT OF ADEQUACY See Note [facility] Comment: Satisfactory for evaluation. Endocervical/transformation zone component present. INTERPRETATION/RESU LT See Note [employer] [facility] [facility] Comment: Cytology Results: Negative for intraepithelial lesion or malignancy. COMMENT See Note [facility] Comment: This case could not be evaluated with computer assisted technology. The slide was manually screened according to routine procedures. RENAL DIETITIAN See Note [employer] Comment: YP, CT(ASCP) CT screening location: [address] [address] COMMENT [facility] HPV MRNA E6/E7 Not Detected Not Detected [facility] Comment: Methodology: Piccolo Mechanic-Mediated Amplification This assay detects E6/E7 viral messenger RNA (mRNA) from 14 high-risk HPV types (16,18,31,33,35,39,45,51,52,56,58,59,66,68). Cervical sources are required for HPV testing. If a vaginal source from a patient who has had a total hysterectomy with removal of cervix was submitted, please contact the testing laboratory for alternative testing options. For additional information, please refer to http://[employer].Complete Network Technology/faq/LVR833z5 (This link if provided for information/ educational purposes only.) Swab Cervix uteri structure / Unknown 02/12/2025 10:22 AM EDT 02/15/2025 8:47 AM EDT Narrative [facility] - 02/17/2025 12:14 PM EDT EXPLANATORY [...] test SurePath(TM) specimens have been determined by [employer]. The modifications have not been cleared or approved by the FDA. This assay has been validated pursuant to the CLIA regulations and is used for clinical purposes. For additional information, please refer to https://[employer].Complete Network Technology/faq/UOO995 (This link is being provided for information/ educational purposes only.) Royce Wesley MD LAB - PATHOLOGY AND CYTOLOGY AM BULATORY Final Result [employer] [address] [address], [employer] [address] [address] * HIV 1/2 AG & AB W/RFLX (4TH GEN) (02/09/2025 4:47 PM EDT) HIV AG/AB, 4TH GEN NON-REAC TIVE NON-REAC TIVE [employer] [facility] Comment: HIV-1 antigen and HIV-1/HIV-2 antibodies were [...] purpose. For additional information please refer to http://education.Valuation App.CiviQ/faq/RFW875 (This link is being provided for informational/ educational purposes only.) The performance of this assay has not been clinically validated in patients less than 2 years old. Blood Blood / Unknown 02/09/2025 4 :47 PM EDT 02/09/2025 4:47 PM EDT [facility] - 02/11/2025 9:56 AM EDT FASTING:NO Tigre Marshall EXCELSIOR MACHINE TENDER-C LAB - BLOOD DRAW Final Re sult [facility] [address] [place] [address], [facility] [address] [place] [phone] * HEMOGLOBIN GLYCOSYLATED A1C (02/09/2025 4:47 PM EDT) HEMOGLOBIN A1C 5.3 <5.7 % of total Hgb [facility] Comment: For the purpose of screening for the presence of diabetes: <5.7% Consistent with the absence of diabetes 5.7-6.4% Consistent with increased risk for diabetes (prediabetes) > or =6.5% Consistent with diabetes This assay result is consistent with a decreased risk of diabetes. Currently, no consensus exists regarding use of hemoglobin A1c for diagnosis of diabetes in children. According to [place] Diabetes Association (ADA) guidelines, hemoglobin A1c <7.0% represents optimal control in non- diabetic patients. Different metrics may apply to specific patient populations. Standards of Medical Care in Diabetes(ADA). Blood Blood / Unknown 02/09/2025 4 :47 PM EDT 02/09/2025 4:47 PM EDT Narrative [facility] - 02/11/2025 9:56 AM EDT FASTING:NO Reeseromie Rolando EXCELSIOR MACHINE TENDER-C LAB - BLOOD DRAW Edited R esult - Final [facility] [address] [address], [place] [facility] [address] [place] [address] * PAP SMEAR W/HPV, ABSTRACTED (06/12/2019 2:53 PM EDT) PAP SMEAR INTERPRETATION NORMAL NORMAL [facility] HPV (HUMAN PAPILLOMA) NEGATIVE NEGATIVE [facility] HPV TYPE 16 NEGATIVE NEGATIVE [facility] HPV TYPE 18 NEGATIVE NEGATIVE [facility] Specimen from uterine cervix (specimen) 06/12/2019 2:53 PM EDT Impressions [facility] - 06/18/2019 2:52 PM EDT Per NEPA: ThinPrep Pap, Imaged: Negative for squamous intraepithelial lesion and malignancy High Risk HPV: NEGATIVE us Provider [facility] - PATHOLOGY AND CYTOLOGY AMB ULATORY Final Result [facility] [address] [place] [address], from Last 3 Months or Most Recently Relevant to Health Maintenance Insurance [place]ICA[place] DENTAL [facility] NET DENTAL [address] [employer] Care Teams Special Services Director Relationship Specialty Start Date End Date Tigre Marshall FNP-C [facility] [place] [address] PCP - General Internal Medicine 11/14/23
--- OUTSIDE RECORDS SUMMARY | 2025-07-22 09:58 | XMS_ITS | Clinical Summary ---
Author Organization [employer] [facility] Address [address] [facility] [address] [place] [address] Care Team Providers Care Aircraft Electrician Name Role Phone Unavailable Primary Care Provider Unavailabl e Encounters Date Type Department Care Team Description 06/22/2025 Population Health Risk Score [facility] Care [facility] (C3) Department [address] [facility] [address] [place] [id number] Provider, Population Health Generic from Last 3 [...] Date Last Done Comments Depression Screening 1988 SDOH Screening 1988 Disability Screening 1988 Alcohol/Substance Use Screening 2000 Tobacco Screening 2000 Family Planning (PISQ) 2003 HPV Vaccines (1 - 3-dose series) 2003 DTaP/Tdap/Td Vaccines (1 - Tdap) 2007 Hepatitis A Vaccines (1 of 2 - Risk 2-dose series) 2007 Hepatitis B Vaccines (1 of 3 - 19+ 3-dose series) 2007 Pap Smear 2009 Cervical Cancer Screening 2018 HPV/Cotest 2018 COVID-19 Vaccine (2023- season) 2024 Influenza Vaccine (#1) 2025 Zoster Vaccines (1 of 2) 2038 RSV Patients and Patients Aged 60 years or older (1 - 1-dose 75+ series) 2063 HIV Screening Completed 02/09/2025, 01/30, 05/23/2023, Additional history exists HIB Vaccines Aged Out No longer eligi [...] age to complete this topic Pneumococcal Vaccine: Pediatrics (0 to 5 Years) and At-Risk Patients (6 to 49) Years Aged Out No longer eligible based on patient's age to complete this topic RSV under 20 months Aged Out No longe r eligible based on patient's age to complete this topic Rotavirus Vaccines Aged Out No longer eligible based on patient's age to complete this topic
== END 2025-07-22 09:36 | disposition home or self-care (01) ==
LOC: HO.HUSH 08:58
PROVIDERS: PCP Dentist General Practice; Visit Provider Urology
DX: N20.0 Calculus of kidney (principal)
CPT/HCPCS: 99213

== ENCOUNTER 2025-08-17 10:11 | Emergency (ER) | payer MEDICAID, SELFPAY ==
--- NOTE | ~2025-08-17 | XR_ITS ---
EXAMINATION: XR CHEST CLINICAL INFORMATION: CP COMPARISON: February 05, 2025 TECHNIQUE: PA and lateral views FINDINGS: No consolidation, pleural effusion or pneumothorax. Hyperinflated lungs. Cardiomediastinal silhouette size is normal. Multilevel thoracolumbar spondylosis, mild to moderate. Vascular clips in the upper right quadrant abdomen. XR/XR chest 2V IMPRESSION: Hyperinflated lungs without acute airspace disease. Multilevel spondylosis. Status post cholecystectomy, likely laparoscopic. Electronically signed by: Junior Sandhu MD 08/17/2025 11:03 AM EDT
--- NOTE | 2025-08-17 10:14 | ECG_ITS ---
Test Reason : cp Blood Pressure : */* mmHG Vent. Rate : 81 BPM Atrial Rate : 81 BPM P-R Int : 166 ms QRS Dur : 78 ms QT Int : 376 ms P-R-T Axes : 75 81 67 degrees QTcB Int : 436 ms Normal sinus rhythm Normal ECG When compared with ECG of 08-Nov-2018 15:30, No significant change was found Referred By: Generic ED Physician Electronically Signed By: VASILIY BARRERA
[2025-08-17 10:28] VITALS: BP 114/58; PULSE 90; RESP 16; TEMP 36.7; O2SAT 97; BMI 27.6
--- NOTE | 2025-08-17 10:30 | ED_ITS ---
HPI - Chest Pain General Chief Complaint: Chest Pain Stated Complaint: Chest pain, pins & needles throughout body Time Seen by Provider: 08/17/25 11:27 Source: patient Mode of arrival: ambulatory Limitations: no limitations History of Present Illness ED Provider: Stephany Vargas PA-C Related Data Home Medications ?Medication ?Instructions ?Recorded ?Confirmed buprenorphine 8 mg-naloxone 2 mg 1 film sublingual JESSIKA LY 01/22/25 sublingual film (Suboxone) Previous Rx's ?Medication ?Instructions ?Recorded pyridoxine (vitamin B6) 50 mg 50 mg PO DAILY 90 days # 90 tabs 07/22/25 tablet Allergies Allergy/AdvReac Type Severity Reaction Status Date / Time No Known Allergies (No Known Allergy Verified 08/17/25 10:29 Allergies*) PMFSH Past Medical History Medical History Persistent headaches Migraines Social History Social History Patient Tobacco Use Status: Tobacco use Unknown Advance Directives: No Advance Directives Information Provided: Yes Physical Exam 2 Vital Signs: Vital Signs: Last Vital Signs Temp 98.1 F 08/17/25 13:39 Pulse 73 08/17/25 13:39 Resp 20 08/17/25 13:39 BP 115/58 L 08/17/25 13:39 Pulse Ox 100 08/17/25 13:39 O2 Del Method Room Air 08/17/25 13:39 BMI result Body Mass Index 27.6 Course Course Course Narrative: This is an RME: Additional HPI, ROS, PE not included below will be deferred to primary provider. 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 Reporting burning and tingling in chest for the last 2 days. Reports pain lasts for a minute at a time. Plan: Labs, EKG, chest xray Medical Decision Making Lab Data 08/17/25 10:43 08/17/25 10:43 Labs: Lab Results 08/17/25 Range/Units 10:43 WBC 11.2 H (4.8-10.8) X10*3/uL RBC 4.26 (4.20-5.50) X10*6/uL Hgb 12.0 (12.0-16.0) g/dl Hct 36.4 L (37.0-47.0) % MCV 85.4 (80.0-98.0) fL MCH 28.2 (27.0-33.0) pg MCHC 33.0 (31.0-35.0) g/dl RDW 13.0 (11.0-16.0) % Plt Count 183 (160-400) X10*3/uL MPV 11.3 (9.4-12.3) fL Immature Gran % (Auto) 0.4 (0.0-0.4) % Neut % (Auto) 83.5 H (45-73) % Lymph % (Auto) 9.9 L (20-40) % [place] % (Auto) 4.1 (2-11) % Eos % (Auto) 1.7 (0-4) % Baso % (Auto) 0.4 (0-2) % Lymph # (Auto) 1.1 L (1.2-4.9) X10*3/uL [place] # (Auto) 0.5 (0.1-1.2) X10*3/uL Eos # (Auto) 0.2 (0.0-0.4) X10*3/uL Baso # (Auto) 0.0 (0.0-0.2) X10*3/uL Abs Immat Gran (auto) 0.04 H (0.00-0.03) X10*3/uL Absolute Neuts (auto) 9.4 H (2.0-8.3) x10*3/uL Absolute Nucleated RBC 0.000 (0.0-0.012) X10*3/uL Nucleated RBC % (auto) 0.0 (0.0-0.2) /100WBC ESR 7 (0-20) MM/HR Sodium 142 (135-145) mmol/L Potassium 3.8 (3.3-5.1) mmol/L Chloride 109 H (96-108) mmol/L Carbon Dioxide 27 (22-29) mmol/L Anion Gap 10 L (12-20) BUN 13 (9-16) mg/dL Creatinine 0.65 (0.5-1.4) mg/dL Estim Creat Clear Calc 99.9 Estimated GFR > 60 Random Glucose 100 (60-115) mg/dL Calcium 9.3 (8.4-10.2) mg/dL Magnesium 2.0 (1.6-2.6) mg/dL Total Bilirubin 0.6 (0.0-1.0) mg/dL Direct Bilirubin 0.2 (0.0-0.5) mg/dL AST 32 H (5-31) U/L ALT 18 (0-31) U/L Alkaline Phosphatase 77 (39-117) U/L Troponin I High Sens < 2.7 (<3.5-17.0) ng/L C-Reactive Protein 0.25 (< or = 0.50) mg/dL Total Protein 7.4 (6.5-8.0) g/dL Albumin 4.7 (3.5-5.0) g/dL Lipase 11 (8-78) U/L Beta HCG, Quant < 2 mIU/mL COVID-19 ([facility]LEY) Negative (Negative) COVID-19 Clin Com See Note Influenza Type A (MATTI) Negative (Negative) Influenza Type B (MATTI) Negative (Negative) Influenza A & B Note See Note Discharge Plan Discharge Clinical Impression: Atypical chest pain Patient Disposition: Home, Self-Care Instructions: Chest Pain (DC) Additional Instructions: IF you are prescribed home medications and/or you are taking over the counter medications at home - it is very important you continue to do so as prescribed / directed unless told otherwise. Follow up with a primary care provider. Return to the emergency department immediately if your symptoms worsen or if you develop any numbness, tingling, dizziness, shortness of breath, difficulty breathing, chest pain, blurry vision, loss of vision, nausea, vomiting, abdominal pain, fever, chills, back pain, or any other complaints. L If you do not have a primary care provider - call any of the below numbers to establish and follow up with a primary care provider. [facility] Primary Care ([place]) [phone] [place] [address], [address] [facility] Primary Care ([address] [place]) [phone] [place] [address], [address] [facility], [address] [facility] Primary Care ([address] [place]) [phone] [place] [address], [address] [facility], [address] [facility] Primary Care ([place]) [phone] [place] [address], [address] [place], [address] [facility] Family Medicine [phone] [place] [address], [address] Please see the information below about our Patient Portal. If you are not yet enrolled in the [facility] Patient Portal, you will receive an enrollment email invitation following your visit to any [facility] setting. You may also self-enroll in the Patient Portal by visiting our website: [email or web address] The following information is required to access the Patient Portal: - Your [facility] Medical Record Number - Your personal home email address (must match what is in your electronic medical record, Registration staff can assist with this) - Name - Date of Capabilities of the Patient Portal: - Message some providers - View upcoming appointments - Access your health summary, medical history, and visit history - View current conditions and allergies - View procedure and lab results - View your medications, including guidelines, side effects, and precautions - Complete pre-appointment questionnaires requested by your provider - Ready summary reports of your office visits and procedures To access the Patient Portal Mobile [employer]el, follow these directions: - Search [employer] in the Mikel Store or [email or web address] Store - Download the Mikel - Search for [facility] - Enter your login/password Prescriptions: No Action buprenorphine-naloxone [Suboxone] 8-2 mg film 1 film sublingual DAILY pyridoxine (vitamin B6) 50 mg tablet 50 mg PO DAILY 90 Days Qty: 90 1RF Referrals: [facility]ists [Provider Group] Referral Note: Call to establish and follow up with the cardiology team. [place],[facility] [place] [Primary Care Provider, Primary Care] Interventions: ED Discharge Assessment Last Done: 08/17/25 13:39 Discharge Date/Time: 08/17/25 13:40 Print Language: Congolese
[2025-08-17 10:55] LABS: MANUAL DIFF FLAG NO
[2025-08-17 10:56] LABS: Hematocrit 36.4 % (37.0-47.0); Hemoglobin 12.0 g/dl (12.0-16.0); Imm Gran Abs Auto 0.04 X10*3/uL (0.00-0.03); Imm Gran Pct Auto 0.4 % (0.0-0.4); Lymphocytes Absolute Auto 1.1 X10*3/uL (1.2-4.9); Mean Corpuscular HGB Conc 33.0 g/dl (31.0-35.0); Mean Corpuscular Hemoglobin 28.2 pg (27.0-33.0); Mean Corpuscular Volume 85.4 fL (80.0-98.0); NRBC Abs Auto 0.000 X10*3/uL (0.0-0.012); NRBC Pct Auto 0.0 /100WBC (0.0-0.2); Platelet Count 183 X10*3/uL (160-400); Red Blood Count 4.26 X10*6/uL (4.20-5.50); White Blood Count 11.2 X10*3/uL (4.8-10.8)
[2025-08-17 11:25] LABS: COVID-19 Test Negative (Negative); IDNOW Serial# 55D5AD1C
[2025-08-17 11:28] LABS: IDNOW Serial# 58CA691E; Influenza B2 Negative (Negative)
[2025-08-17 11:32] VITALS: BP 115/58; PULSE 73; RESP 20; O2SAT 100
--- NOTE | 2025-08-17 11:36 | PC.NURSE ---
Pt roomed and placed on full monitor- A&O X4 VSS Provider here to eval pt. Pt No CP at this moment. Pt in NSR on monitor.
[2025-08-17 11:44] LABS: Alanine Aminotransferase 18 U/L (0-31); Albumin Level 4.7 g/dL (3.5-5.0); Alkaline Phosphatase 77 U/L (39-117); Anion Gap 10 (12-20); Aspartate Amino Transferase 32 U/L (5-31); Blood Urea Nitrogen 13 mg/dL (9-16); Calcium 9.3 mg/dL (8.4-10.2); Carbon Dioxide 27 mmol/L (22-29); Chloride 109 mmol/L (96-108); Creatinine Clr Calc Pharmacy 99.9; Estimated Glomerular Filt Rate > 60; Lipase 11 U/L (8-78); Magnesium 2.0 mg/dL (1.6-2.6); Potassium 3.8 mmol/L (3.3-5.1); Sodium 142 mmol/L (135-145); Total Protein 7.4 g/dL (6.5-8.0)
--- NOTE | 2025-08-17 11:44 | ED_ITS ---
HPI - Chest Pain General Chief Complaint: Chest Pain Stated Complaint: Chest pain, pins & needles throughout body Time Seen by Provider: 08/17/25 11:27 Source: patient Mode of arrival: ambulatory Limitations: no limitations History of Present Illness HPI narrative: Patient is a 34 year old assigned female at with a history of migraines and kidney stones presenting to the emergency department for intermittent right sided chest pain with associated burning and tingling sensations. Patient states that she has had episodes lasting approximately 1 minute of sharp chest pain over the past 2 weeks and noticed associated burning and tingling sensations throughout her body in the past 2 days. She also reports increased fatigue. Patient denies any known triggering or relieving factors. Patient states she is also a week late for her period. Patient reports her sister at 1 years old due to a heart disease. Patient has a 15 pack year smoking hx and denies ETOH or any other substance use at this time. Related Data Home Medications ?Medication ?Instructions ?Recorded ?Confirmed buprenorphine 8 mg-naloxone 2 mg 1 film sublingual JESSIKA LY 01/22/25 sublingual film (Suboxone) Previous Rx's ?Medication ?Instructions ?Recorded pyridoxine (vitamin B6) 50 mg 50 mg PO DAILY 90 days # 90 tabs 07/22/25 tablet Allergies Allergy/AdvReac Type Severity Reaction Status Date / Time No Known Allergies (No Known Allergy Verified 08/17/25 10:29 Allergies*) Review of Systems 2 Constitutional: Constitutional: Reports as per HPI Eyes: Eyes: Reports as per HPI ENT: Reports as per HPI Cardiovascular: Cardiovascular: Reports as per HPI Respiratory: Respiratory: Reports as per HPI Gastrointestinal: Gastrointestinal: Reports as per HPI Genitourinary: Genitourinary: Reports as per HPI Musculoskeletal: Musculoskeletal: Reports as per HPI Integumentary/Breasts: Skin/Breast: Reports as per HPI Neurologic: Reports as per HPI Psychiatric: Psychiatric: Reports as per HPI Endocrine: Endocrine: Reports as per HPI Hematologic/Lymphatic: Hematologic/Lymphatic: Reports as per HPI Allergic/Immunologic: Allergic/Immunologic: Reports as per HPI PMFSH Past Medical History Attestation statement: The following information was validated with the patient. Source: old records reviewed and nursing notes reviewed Medical History Persistent headaches Migraines Social History Social History Patient Tobacco Use Status: Tobacco use Unknown Advance Directives: No Advance Directives Information Provided: Yes Physical Exam 2 Vital Signs: Vital Signs: Last Vital Signs Temp 98.1 F 08/17/25 13:39 Pulse 73 08/17/25 13:39 Resp 20 08/17/25 13:39 BP 115/58 L 08/17/25 13:39 Pulse Ox 100 08/17/25 13:39 O2 Del Method Room Air 08/17/25 13:39 BMI result Body Mass Index 27.6 Const: General: cooperative, no acute distress, alert and awake Nutritional Appearance: well nourished Orientation/consciousness: patient oriented x3 HEENT: Head: Yes normal to inspection and Yes atraumatic Ears: hearing grossly normal bilaterally and external ears normal General nose exam: Normal external nose present, no nasal discharge noted and no epistaxis Face and sinus: Yes normal facial exam, No abrasion and No laceration Mouth: Normal oral and palatal mucosa present, no drooling and no muffled voice Eyes: General: appearance normal, both eyes and all related structures P eriorbital: periorbital findings normal Eyelids: Yes eyelids normal C onjunctivae: conjunctivae normal Pupils: Equal, round and reactive pupils present EOM: EOMs intact bilaterally Neck: Neck: Yes normal visual inspection and Yes full ROM Resp: Effort & Inspection: normal respiratory effort and able to speak in complete sentences Auscultation: clear to auscultation bilaterally Cardio: Rate: regular rate Rhythm: regular rhythm Heart sounds: S1 normal heart sound present and S2 normal heart sound present GI: Inspection: Yes normal to inspection and No distended Palpation (GI): S oft to palpation, nontender and no guarding Neuro: General: patient oriented x3, moves all extremities and CN's II-XI intact bilaterally Cranial nerves: Yes Equal, round and reactive pupils present Cognition (Neuro): normal cognition Extrem: General: Yes normal to inspection, Yes full ROM and Yes capillary refill normal Psych: Appearance: grossly normal Mental Status: mental status grossly normal Affect: normal affect Attitude: cooperative Thought process: N ormal thought process present Thought content: Normal thought content present Insight: Good insight present (Psych) Course Course Course Narrative: This is an RME: Additional HPI, ROS, PE not included below will be deferred to primary provider. 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 Reporting burning and tingling in chest for the last 2 days. Reports pain lasts for a minute at a time. Plan: Labs, EKG, chest xray Medical Decision Making Medical Decision Making [facility] Narrative: Patient is a 34 year old assigned female at with a history of migraines and kidney stones presenting to the emergency department for intermittent right sided chest pain with associated burning and tingling sensations. Patient's physical exam was unremarkable. Patient's blood work was unremarkable. Patient's EKG was unremarkable. Patient's chest x-ray showed no acute process. I explained my physical exam findings as well as all test results to the patient. I answered all questions asked by the patient. I stressed the importance of the patient taking her medication as directed (either prescribed or as the over the counter packaging recommends). I stressed the importance of the patient following up with her primary care provider and the cardiology team. I stressed the importance of the patient returning to the emergency department immediately if her symptoms were to worsen or if she were to develop any dizziness, shortness of breath, difficulty breathing, chest pain, blurry vision, loss of vision, nausea, vomiting, abdominal pain, fever, chills, back pain, or any other complaints. Patient verbalized agreement and understanding with this treatment plan and discharge. Differential Diagnosis Differential Diagnoses: The differential diagnosis associated with the presentation includes Chest pain Atypical chest pain Admission/Observation Consideration of admission/observation: Escalation of care including admission/observation considered Patient would have been admitted to the hospital had her work up had any findings where hospital admission was appropriate and her clinical presentation warranted hospital admission. Lab Data [facility] Lab Attestation statement: I reviewed the patient's lab results. My interpretation of these results are in the MDM Rationale portion of this note. 08/17/25 10:43 08/17/25 10:43 Labs: Lab Results 08/17/25 Range/Units 10:43 WBC 11.2 H (4.8-10.8) X10*3/uL RBC 4.26 (4.20-5.50) X10*6/uL Hgb 12.0 (12.0-16.0) g/dl Hct 36.4 L (37.0-47.0) % MCV 85.4 (80.0-98.0) fL MCH 28.2 (27.0-33.0) pg MCHC 33.0 (31.0-35.0) g/dl RDW 13.0 (11.0-16.0) % Plt Count 183 (160-400) X10*3/uL MPV 11.3 (9.4-12.3) fL Immature Gran % (Auto) 0.4 (0.0-0.4) % Neut % (Auto) 83.5 H (45-73) % Lymph % (Auto) 9.9 L (20-40) % [place] % (Auto) 4.1 (2-11) % Eos % (Auto) 1.7 (0-4) % Baso % (Auto) 0.4 (0-2) % Lymph # (Auto) 1.1 L (1.2-4.9) X10*3/uL [place] # (Auto) 0.5 (0.1-1.2) X10*3/uL Eos # (Auto) 0.2 (0.0-0.4) X10*3/uL Baso # (Auto) 0.0 (0.0-0.2) X10*3/uL Abs Immat Gran (auto) 0.04 H (0.00-0.03) X10*3/uL Absolute Neuts (auto) 9.4 H (2.0-8.3) x10*3/uL Absolute Nucleated RBC 0.000 (0.0-0.012) X10*3/uL Nucleated RBC % (auto) 0.0 (0.0-0.2) /100WBC ESR 7 (0-20) MM/HR Sodium 142 (135-145) mmol/L Potassium 3.8 (3.3-5.1) mmol/L Chloride 109 H (96-108) mmol/L Carbon Dioxide 27 (22-29) mmol/L Anion Gap 10 L (12-20) BUN 13 (9-16) mg/dL Creatinine 0.65 (0.5-1.4) mg/dL Estim Creat Clear Calc 99.9 Estimated GFR > 60 Random Glucose 100 (60-115) mg/dL Calcium 9.3 (8.4-10.2) mg/dL Magnesium 2.0 (1.6-2.6) mg/dL Total Bilirubin 0.6 (0.0-1.0) mg/dL Direct Bilirubin 0.2 (0.0-0.5) mg/dL AST 32 H (5-31) U/L ALT 18 (0-31) U/L Alkaline Phosphatase 77 (39-117) U/L Troponin I High Sens < 2.7 (<3.5-17.0) ng/L C-Reactive Protein 0.25 (< or = 0.50) mg/dL Total Protein 7.4 (6.5-8.0) g/dL Albumin 4.7 (3.5-5.0) g/dL Lipase 11 (8-78) U/L Beta HCG, Quant < 2 mIU/mL COVID-19 (LESLEY) Negative (Negative) COVID-19 Clin Com See Note Influenza Type A (MATTI) Negative (Negative) Influenza Type B (MATTI) Negative (Negative) Influenza A & B Note See Note Independent Interpretation I performed an independent interpretation of an: EKG and Plain X-Ray Interpretation: My interpretation is in agreement with the radiologist's impression of this imaging study. L Reason for Exam: CP EXAMINATION: XR CHEST CLINICAL INFORMATION: COMPARISON: February 05, 2025 TECHNIQUE: PA and lateral views FINDINGS: No consolidation, pleural effusion or pneumothorax. Hyperinflated lungs. Cardiomediastinal silhouette size is normal. Multilevel thoracolumbar spondylosis, mild to moderate. Vascular clips in the upper right quadrant abdomen. XR/XR chest 2V IMPRESSION: Hyperinflated lungs without acute airspace disease. Multilevel spondylosis. Status post cholecystectomy, likely laparoscopic. Electronically signed by: Junior Sandhu MD 08/17/2025 11:03 AM EDT Dictated By: Junior Manclila MD Signed By: Electronically signed by Junior Blum MD 08/17/25 1103 I independently interpreted this EKG and am in agreement with the below findings: Vent. Rate: 81 BPM Atrial Rate: 81 BPM P-R Int: 166 ms QRS Dur: 78 ms QT Int: 376 ms P-R-T Axes: 75 81 67 degrees QTcB Int: 436 ms Normal sinus rhythm Normal ECG When compared with ECG of 08-Nov-2018 15:30, No significant change was found DD/ 1015 Radiology Impression Discussion of test interpretation with radiology: I have reviewed the radiologist's reading. Discharge Plan Discharge Clinical Impression: Atypical chest pain Patient Disposition: Home, Self-Care Instructions: Chest Pain (DC) Additional Instructions: IF you are prescribed home medications and/or you are taking over the counter medications at home - it is very important you continue to do so as prescribed / directed unless told otherwise. Follow up with a primary care provider. Return to the emergency department immediately if your symptoms worsen or if you develop any numbness, tingling, dizziness, shortness of breath, difficulty breathing, chest pain, blurry vision, loss of vision, nausea, vomiting, abdominal pain, fever, chills, back pain, or any other complaints. L If you do not have a primary care provider - call any of the below numbers to establish and follow up with a primary care provider. [facility] ([place]) [phone] [place] [address], [address] [facility] ([address] [place]) [phone] [place] [address], [address] [facility], [address] [facility] ([address] [place]) [phone] [place] [address], [address] [facility], [address] [facility] ([place]) [phone] [place] [address], [address] [facility], [address] [facility] Family [facility] [phone] [address] [facility], [address] Please see the information below about our Patient Portal. If you are not yet enrolled in the [facility] Patient Portal, you will receive an enrollment email invitation following your visit to any [facility] setting. You may also self-enroll in the Patient Portal by visiting our website: [email or web address] The following information is required to access the Patient Portal: - Your [facility] Medical Record Number - Your personal home email address (must match what is in your electronic medical record, Registration staff can assist with this) - Name - Date of Capabilities of the Patient Portal: - Message some providers - View upcoming appointments - Access your health summary, medical history, and visit history - View current conditions and allergies - View procedure and lab results - View your medications, including guidelines, side effects, and precautions - Complete pre-appointment questionnaires requested by your provider - Ready summary reports of your office visits and procedures To access the Patient Portal Mobile Mikel, follow these directions: - Search [employer] in the Mikel Store or Google [employer] Store - Download the Mikel - Search for [facility] - Enter your login/password Prescriptions: No Action buprenorphine-naloxone [Suboxone] 8-2 mg film 1 film sublingual DAILY pyridoxine (vitamin B6) 50 mg tablet 50 mg PO DAILY 90 Days Qty: 90 1RF Referrals: [facility] [Provider Group] Referral Note: Call to establish and follow up with the cardiology team. [facility] [Primary Care Provider, Primary Care] Interventions: ED Discharge Assessment Last Done: 08/17/25 13:39 Discharge Date/Time: 08/17/25 13:40 Print Language: Puerto Rican
[2025-08-17 11:56] LABS: Troponin-I High Sensitivity < 2.7 ng/L (<3.5-17.0)
[2025-08-17 13:39] VITALS: BP 115/58; PULSE 73; RESP 20; TEMP 36.7; O2SAT 100
--- OUTSIDE RECORDS SUMMARY | 2025-08-17 13:53 | XMS_ITS | Clinical Summary ---
Author Organization [facility] Address [address] [facility] [facility] [address] [place] [address] Care Team Providers Care Director Financial Analysis Name Role Phone Unavailable Primary Care Provider Unavailabl e Encounters Date Type Department Care Team Description 06/22/2025 Population Health Risk Score [facility] Care [facility] ([facility]) Department [address] [facility] [address] [place] [id number] Provider, Population Health Generic from Last 3 [...] 2018 HPV/Cotest 2018 COVID-19 Vaccine (2023- season) 2025 Influenza Vaccine (#1) 2025 Zoster Vaccines (1 [...]
--- OUTSIDE RECORDS SUMMARY | 2025-08-17 13:53 | XMS_ITS | Encounter Summary ---
Author Organization [facility] Address [address] [place] [address] Care Team Providers Care Professor Of Economics Name Role Phone Rolando Tigre BIODIESEL PRODUCT DEVELOPMENT MANAGER-C Primary Care Provider [phone] Reason for Visit * Reason Comments Alcohol And Drug Screening Encounter Details Date Type Department Care Team (Late st Contact Info) Description 07/13/2016 / Visits [address] [address] Edyta Alberto, COUNSELOR [address] [place] [address] Social History Tobacco Use Types Packs/Day Years [...] documented in this encounter Plan of Treatment Not on file documented as of this encounter Visit Diagnoses Diagnosis Abuse, drug or alcohol (CMS & HHS-HCC)- Primary Other, mixed, or unspecified nondependent drug abuse, unspecified documented in this encounter Care Teams Professor Of Economics Relationship Specialty Start Date End Date Tigre Marshall FNP-C [address] [place] [address] PCP - General Internal Medicine 11/14/23 documented as of this encounter
--- OUTSIDE RECORDS SUMMARY | 2025-08-17 13:53 | XMS_ITS | Clinical Summary ---
Author Organization [facility] Address [address] [place] [address] Care Team Providers Care Farm Mechanic Name Role Phone Tigre Marshall CARTRIDGE BELT PUNCHER-C Primary Care Provider [phone] Source Comments PLEASE NOTE, if this patient [...] 2) infection 018 Opioid dependence in remission ([facility]) 0 07/12/2016 Resolved Problems Problem Noted Date Diagnosed Date Resolved Date Acute hepatitis C virus infection 05/29/2017 07/31/2022 Overview (05/29/2017): Followed by [facility]ology Substance abuse ([facility]) 07/30/2016 07/30/2016 Overview (07/30/2016): Pt came to [...] Imm-Pneumococcal (1 of 2 - PCV) 2007 Imm-HPV (1 - Risk 3-dose SCD M series) 2015 HPV Screening 06/12/2024 06/12/2019 Imm-Influenza (#1) 2025 [...] Biopsy Discontinued Excision/Leep Discontinued HPV Genotyping Discontinued [id number] Discontinued Imm-DTaP/Tdap/Td Discontinued Vaginal Pap Discontinued Vulvoscopy Discontinued Procedures Procedure Name Priority Date/Time Associated Diagnosis Comments REFERRAL SCANNED DOCUMENT 07/22/2025 3:00 AM EDT IMAGING SCANNED DOCUMENT 07/08/2025 3:00 AM EDT [...] Recently Relevant to Health Maintenance Results * REFERRAL SCANNED DOCUMENT (07/22/2025 3:00 AM EDT) 07/22/2025 3:00 AM EDT us Epi Piper RN SCAN REFERRAL Final Result * IMAGING SCANNED DOCUMENT (07/08/2025 3:00 AM EDT) 07/08/2025 3:00 AM EDT us Epi Piper RN SCAN IMAGING Final Result * THINPREP IMAGING PAP, HPV MRNA E6/E7 RFLEX HPV 16,18/45 CT/NG (02/12/2025 10:22 AM EDT) CHLAMYDIA TRACHOMATIS RNA, TMA NOT DETECTED NOT DETECTED [facility] NEISSERIA GONORRHOEAE RNA, TMA NOT DETECTED NOT DETECTED [facility] COMMENT [facility] CLINICAL INFORMATION See Note [facility] Comment:None given LMP See Note [facility] Comment:NONE GIVEN PREV. PAP See Note [facility] Comment:NONE GIVEN PREV. BX See Note [facility] Comment:NONE GIVEN SOURCE See Note [facility] Comment:Cervix STATEMENT OF ADEQUACY See Note [facility] Comment: Satisfactory for evaluation. Endocervical/transformation zone component present. INTERPRETATION/RESU LT See Note [facility] Comment: Cytology Results: Negative for intraepithelial lesion or malignancy. COMMENT See Note [facility] Comment: This case could not be evaluated with computer assisted technology. The slide was manually screened according to routine procedures. ASSISTANT PROFESSOR IN FAMILY STUDIES See Note [facility] Comment: YP, CT(ASCP) CT screening location: [place] [address] [facility] HPV MRNA E6/E7 Not Detected Not Detected [address] [facility] Comment: Methodology: Instructional Design Technologist-Mediated Amplification This assay detects E6/E7 viral messenger RNA (mRNA) from 14 high-risk HPV types (16,18,31,33,35,39,45,51,52,56,58,59,66,68). Cervical sources are required for HPV testing. If a vaginal source from a patient who has had a total hysterectomy with removal of cervix was submitted, please contact the testing laboratory for alternative testing options. For additional information, please refer to http://Wooboard.com.MedaPhor/faq/OTA635o3 (This link if provided for information/ educational purposes only.) Swab Cervix uteri structure / Unknown 02/12/2025 10:22 AM EDT 02/15/2025 8:47 AM EDT N[address] [facility] - 02/17/2025 12:14 PM EDT EXPLANATORY NOTE: [...] test SurePath(TM) specimens have been determined by [facility]. The modifications have not been cleared or approved by the FDA. This assay has been validated pursuant to the CLIA regulations and is used for clinical purposes. For additional information, please refer to https://Wooboard.com.MedaPhor/faq/ZPJ386 (This link is being provided for information/ educational purposes only.) Royec Wesley MD LAB - PATHOLOGY AND CYTOLOGY AM BULATORY Final Result [address] [address], [address] [address] * HIV 1/2 AG & AB W/RFLX (4TH GEN) (02/09/2025 4:47 PM EDT) HIV AG/AB, 4TH GEN NON-REAC TIVE NON-REAC TIVE [facility] Comment: HIV-1 antigen and HIV-1/HIV-2 antibodies were [...] purpose. For additional information please refer to http://education.MedaPhor/faq/KCM277 (This link is being provided for informational/ educational purposes only.) The performance of this assay has not been clinically validated in patients less than 2 years old. Blood Blood / Unknown 02/09/2025 4 :47 PM EDT 02/09/2025 4:47 PM EDT Narrative [facility] - 02/11/2025 9:56 AM EDT FASTING:NO Tigre Marshall CARTRIDGE BELT PUNCHER-C LAB - BLOOD DRAW Final Re sult [facility] [address] [address], [address] [address] * HEMOGLOBIN GLYCOSYLATED A1C (02/09/2025 4:47 PM EDT) HEMOGLOBIN A1C 5.3 <5.7 % of total Hgb [facility] Comment: For the purpose of screening for the presence of diabetes: <5.7% Consistent with the absence of diabetes 5.7-6.4% Consistent with increased risk for diabetes (prediabetes) > or =6.5% Consistent with diabetes This assay result is consistent with a decreased risk of diabetes. Currently, no consensus exists regarding use of hemoglobin A1c for diagnosis of diabetes in children. According to [place] Diabetes Association (ADA) guidelines, hemoglobin A1c <7.0% represents optimal control in non- diabetic patients. Different metrics may apply to specific patient populations. Standards of Medical Care in Diabetes(ADA). Blood Blood / Unknown 02/09/2025 4 :47 PM EDT 02/09/2025 4:47 PM EDT Narrative [facility] - 02/11/2025 9:56 AM EDT FASTING:NO Tigre Marshall CARTRIDGE BELT PUNCHER-C LAB - BLOOD DRAW Edited R esult - Final Performing Organization Address City/[facility]/ZIP Co de Phone Number [address] [facility] [address] [address], [address] [facility] [address] [place] [address] * PAP SMEAR W/HPV, ABSTRACTED (06/12/2019 2:53 PM EDT) PAP SMEAR INTERPRETATION NORMAL NORMAL [facility] HPV (HUMAN PAPILLOMA) NEGATIVE NEGATIVE [facility] HPV TYPE 16 NEGATIVE NEGATIVE [facility] HPV TYPE 18 NEGATIVE NEGATIVE [facility] Specimen from uterine cervix (specimen) 06/12/2019 2:53 PM EDT Impressions [facility] - 06/18/2019 2:52 PM EDT Per [facility]: ThinPrep Pap, Imaged: Negative for squamous intraepithelial lesion and malignancy High Risk HPV: NEGATIVE Provider [facility] - PATHOLOGY AND CYTOLOGY AMB ULATORY Final Result [facility] [address] [place] [address], from Last 3 Months or Most Recently Relevant to Health Maintenance [place] [employer] [employer] NET D[employer] [address] [employer] Care Teams Farm Mechanic Relationship Specialty Start Date End Date Tigre Marshall FNP-C [address] [place] [address] PCP - General Internal Medicine 11/14/23
== END 2025-08-17 13:40 | disposition home or self-care (01) ==
PROVIDERS: Physician Assistant Medical; Emergency Provider Emergency Medicine; PCP Dentist General Practice
DX: R07.9 Chest pain, unspecified (principal); R20.2 Paresthesia of skin; Z03.818 Encounter for observation for suspected exposure to other biological agents ruled out
CPT/HCPCS: 36415; 71046; 80048; 80076; 83690; 83735; 84484; 84702; 85025; 85652; 86140; 87502; 87635; 93005; 99283; 99284

== ENCOUNTER → 2025-08-17 10:14 | Outpatient (BNV) | payer MEDICAID, SELFPAY | PROVIDERS: Emergency Provider Emergency Medicine; PCP Dentist General Practice; Visit Provider Internal Medicine | DX: R07.89 Other chest pain (principal) | CPT/HCPCS: 93010 ==

== ENCOUNTER → 2025-08-17 10:32 | Outpatient (BNV) | payer MEDICAID, SELFPAY | PROVIDERS: PCP Dentist General Practice; Visit Provider Radiology Diagnostic Radiology | DX: R07.9 Chest pain, unspecified (principal) | CPT/HCPCS: 71046 ==

== ENCOUNTER 2025-10-06 13:54 | Outpatient (AMB) | payer MEDICAID, SELFPAY ==
--- NOTE | 2025-10-06 13:58 | MHC.OFFVIS ---
Vital Signs 10/06/25 13:59 Height 5 ft Weight 151 lb 10.848 oz BMI 29.6 BP 98/50 L Blood Pressure Location Lt brachial Position Sitting Pulse 61 Pulse Source Pulse Oximeter Intake Visit Reasons: [facility] ER-Chest pain,pins & needles throughout Window/Distribution Clerk Required: No Accompanied by: Daughter Allergies No Known Allergies (No Known Allergies*) Allergy (Verified 10/06/25 14:02) Medication List - Last Reconciled 10/06/25 by Janes Pandya NP buprenorphine ER (Brixadi Monthly) 64 mg subcut Q28D HPI Comments Details: This is a 34-year-old female patient referred from the ER for further evaluation of chest pain. Moving forward, patient will be under Dr. Sanz as he is the rounding key account coordinator this week. Patient with no known history of coronary artery disease, ischemic disease, or cardiomyopathy. Patient does note that her 1st born sibling diet at the age of 2 due to a heart anomaly. Patient was recently seen in the emergency room for chest discomfort that has been ongoing for couple of weeks prior to the visit. In the ER her biomarkers were negative and EKG was normal. Today, patient denies any recurrent symptoms since ER discharge however when she was having it for the couple of weeks it was random in nature as could be happening with exertion as well as at rest. Patient did notice mild dizziness with these symptoms and tingling across her head and arms. Patient is otherwise denying any palpitations, orthopnea, PND, leg edema, presyncope or syncope. Patient does note that few years ago she was told her cholesterol levels were elevated however nothing was done of that. [facility] Medical History Persistent headaches Migraines Family History Sister Heart murmur Maternal Grandmother Heart problem Social History Patient Tobacco Use Status: Tobacco use Unknown Review of Systems Const Denies daytime sleepiness, Denies difficulty sleeping, Denies snoring, Denies stops breathing during sleep and Denies weakness Card Denies chest pain, Denies rapid heart rate, Denies irregular heart rhythm, Denies claudication, Denies leg edema, Denies lightheadedness, Denies palpitations, Denies dyspnea, Denies dyspnea on exertion, Denies orthopnea, Denies paroxysmal nocturnal dyspnea and Denies slow heart rate Resp Denies cough, Denies dyspnea, Denies dyspnea on exertion and Denies snoring GI Reports no additional complaints, Denies hematochezia, Denies change in stool character and Denies dyspepsia Musc Denies abnormal gait, Denies muscle weakness and Denies numbness Neuro Denies abnormal gait, Denies numbness and Denies weakness Endo Denies palpitations Physical Exam Vital Signs: Last Vital Signs Pulse 61 10/06/25 13:59 BP 98/50 L 10/06/25 13:59 BMI result Body Mass Index 29.6 Const General: cooperative, healthy appearing, comfortable and no acute distress Orientation/consciousness: patient oriented x3 HEENT Head: Yes normal to inspection Neck Neck: Yes normal visual inspection, Yes trachea midline and Yes supple Chest Chest palpation & inspection: normal inspection of the chest Resp Effort & Inspection: normal respiratory effort Auscultation: clear to auscultation bilaterally, no crackles, no rales, no rhonchi and no wheezes Cardio Jugular venous distension: no JVD Palpation: normal PMI Rate: regular rate Rhythm: regular rhythm Heart sounds: S1 normal heart sound present, S2 normal heart sound present, no click, no gallops, no murmurs and no rubs Peripheral pulses: Peripheral pulses 2+ throughout GI Inspection: Yes normal to inspection Palpation (GI): Soft to palpation Auscultation: normal bowel sounds Skin General skin exam: no rashes or lesions noted Neuro General: patient oriented x3 Extrem General: Yes normal to inspection, No no pedal edema and No calf tenderness Psych Appearance: grossly normal Mental Status: mental status grossly normal Speech and movement: Normal speech and movement present Assessment & Plan Assessment & Plan (1) Chest pain: Code(s): R07.9 - Chest pain, unspecified Category: Medical Plan: Patient was recently seen in the emergency room for chest pain where her biomarkers were negative. EKG was also normal. Patient's symptoms are atypical in nature however, given her reports of chest discomfort and dizziness, we will proceed with a echo study to look for any valvular or structural dysfunction. We will also obtain a treadmill stress test to look for any ischemic changes. Given her reports of elevated cholesterol in the past (no records of this), we will get a lipid profile as we have nothing in the recent 5 years. Advised on heart healthy diet, regular exercise, stress mitigation strategies, and management of vascular risk factors. Follow up after testings. In the interim, patient will call the office with any concerns or change in symptoms. Advised to seek ER care in case of exertional chest pain not resolved with rest. This note was generated using voice recognition software. While every effort has been made to ensure accuracy and proper music box mechanic, there may be occasional errors that could affect the content or meaning of the described symptoms. Orders: Orders CA echo transthoracic complete Today R07.9 - Chest pain, unspecified CA stress test Today R07.9 - Chest pain, unspecified Lipid Panel Today R07.9 - Chest pain, unspecified Coding Level of Care Code New Pt Level 4 (11898) Complex EM visit Add On G2211 Diagnoses Chest pain R07.9 Time Spent (min) 31 Comment Time spent in reviewing the chart, test results, assessment, counseling and documentation.
[2025-10-06 13:59] VITALS: BP 98/50; PULSE 61; BMI 29.6
--- OUTSIDE RECORDS SUMMARY | 2025-10-06 17:08 | XMS_ITS | Clinical Summary ---
Author Organization [employer] Address [address] [place] [address] Care Team Providers Care Contracts Intern Name Role Phone Unavailable Primary Care Provider Unavailabl e Social History Tobacco Use Types Packs/Day Years [...] Screening 2018 HPV/Cotest 2018 COVID-19 Vaccine ( season) 2025 Influenza Vaccine (#1) 2025 Zoster Vaccines (1 of 2) 2038 RSV Patients and Patients Aged 60 years or older (1 - 1-dose 75+ series) 2063 HIV Screening Completed 02/09/2025, 05/03, 01/08/2023, Additional history exists HIB Vaccines Aged Out [...]
== END 2025-10-06 14:41 | disposition home or self-care (01) ==
PROVIDERS: PCP Dentist General Practice
DX: R07.9 Chest pain, unspecified (principal)
CPT/HCPCS: 99204

== ENCOUNTER → 2025-10-06 13:54 | Outpatient (BNVA) | payer MEDICAID, SELFPAY | PROVIDERS: PCP Dentist General Practice | DX: Z09 Encounter for follow-up examination after completed treatment for conditions other than malignant neoplasm (principal); R07.9 Chest pain, unspecified | CPT/HCPCS: 99212 ==

== ENCOUNTER → 2025-11-26 10:05 | Outpatient (REF) | payer MEDICAID, SELFPAY ==
--- NOTE | 2025-11-26 10:07 | CA_ITS ---
Acquisition Time: 2025-11-26 10:14:27 Total Exercise Time: 00:07:00 Test Indications: CP,Dizzy Spells Medications: BRIXADI Protocol: ZARINA Max HR: 166 BPM 90% of Pred: 184 BPM Max BP: 128/64 mmHG Max Work Load: 8.5 METS Exercise stress test with exercise 7 mins of Zarina Protocol, achieving 90% MPHR, without any reports of chest discomfort, without any arrythmias, with normotensive response to exercise. Without any EKG changes meeting criteria for ischemia. In recovery, pt continued to feel well. Test reviewed with Dr. Huerta. Referred By: Janes Pandya Electronically Signed By: Janes Pandya
--- OUTSIDE RECORDS SUMMARY | 2025-11-26 10:09 | XMS_ITS | Clinical Summary ---
Author Organization [employer] Address [address] [place] [address] Care Team Providers Care Scada Engineer Name Role Phone Unavailable Primary Care Provider [...] 2018 HPV/Cotest 2018 COVID-19 Vaccine ( - season) 2025 Influenza Vaccine (#1) 2025 Zoster [...]
== END ==
LOC: HO.CARD 10:05
PROVIDERS: PCP Dentist General Practice
DX: R07.9 Chest pain, unspecified (principal)
CPT/HCPCS: 93017